=== PATIENT | male | born 1950 | race Caucasian/White ===

== ENCOUNTER 2017-11-20 13:43 | Observation (INO) | payer BC ==
[~2017-11-20] VITALS: Ht 167.6 cm; Wt 77.1 kg
[2017-11-20] MEDS ORDERED: NITROGLYCERIN 0.4 MG SUBL SL ONE (14:00)
[2017-11-20] MEDS ORDERED: ASPIRIN 81 MG CHEW TAB PO ONE (14:00)
[2017-11-20 14:01] LABS: BASOPHILS # (AUTO) 0.1 (0.0-0.1); BASOPHILS % 0.6 % (0.0-1.0); EOSINOPHILS # (AUTO) 0.4 (0.0-0.4); HEMATOCRIT 43.4 % (38.2-49.6); HEMOGLOBIN 14.8 g/dL (14.0-18.0); LYMPHOCYTES % 25.2 % (18.0-39.1); MEAN CORPUSCULAR HEMOGLOBIN 30.5 pg (28-32); MEAN CORPUSCULAR HGB CONC 34.1 g/dL (31-35); MEAN CORPUSCULAR VOLUME 89.3 fL (81-99); MONOCYTES # (AUTO) 0.8 (0.2-0.8); MONOCYTES % 10.4 % (4.4-11.3); NEUTROPHILS # (AUTO) 4.6 (2.1-6.9); NEUTROPHILS % 58.3 % (38.7-80.0); PLATELET COUNT 312 x10e3/uL (140-360); RED BLOOD COUNT 4.86 x10e6/uL (4.3-5.7); RED CELL DISTRIBUTION WIDTH 13.8 % (11.7-14.4)
[2017-11-20 14:12] LABS: INR 0.95; PROTHROMBIN TIME 11.9 seconds (11.9-14.5)
[2017-11-20 14:13] LABS: PARTIAL THROMBOPLASTIN TIME 32.5 seconds (23.8-35.5)
[2017-11-20 14:23] LABS: ALANINE AMINOTRANSFERASE 63 IU/L (0-55); ALBUMIN 4.2 g/dL (3.5-5.0); ALBUMIN/GLOBULIN RATIO 1.2 (0.8-2.0); ALKALINE PHOSPHATASE 241 IU/L (40-150); ANION GAP 12.4 mmol/L (8-16); BLOOD UREA NITROGEN 12 mg/dL (7-26); BUN/CREATININE RATIO 12 (6-25); CALCIUM 9.5 mg/dL (8.4-10.2); CARBON DIOXIDE 26 mmol/L (22-29); CHLORIDE 102 mmol/L (98-107); CREATINE KINASE 73 IU/L (30-200); CREATININE, SERUM 1.03 mg/dL (0.72-1.25); EST GLOMERULAR FILTRATION RATE > 60 ML/MIN (60-); GLUCOSE 87 mg/dL (74-118); POTASSIUM 4.4 mmol/L (3.5-5.1); SODIUM 136 mmol/L (136-145)
--- NOTE | 2017-11-20 14:32 | Diagnostic Imaging Report ---
EXAMINATION: CHEST SINGLE (PORTABLE) INDICATION: \S\ERMD ORDER \S\[id number] \S\1400 \S\Y COMPARISON: None FINDINGS: AP view TUBES and LINES: None. LUNGS: Lungs are well inflated. Lungs are clear. There is no evidence of pneumonia or pulmonary edema. PLEURA: No pleural effusion or pneumothorax. HEART AND MEDIASTINUM: Mildly tortuous aorta. The cardiomediastinal silhouette is otherwise unremarkable. BONES AND SOFT TISSUES: No acute osseous lesion. Soft tissues are unremarkable. UPPER ABDOMEN: No free air under the diaphragm. IMPRESSION: No acute thoracic abnormality. Signed by: DR. Eder Matos MD on 11/20/2017 2:29 PM
[2017-11-20 14:46] LABS: THYROID STIMULATING HORMONE 1.977 uIU/mL (0.350-4.940)
[2017-11-20] MEDS ORDERED: NITROGLYCERIN 2% OINT 1 GM PKT TOP ONE (15:00)
[2017-11-20] MEDS: NITROGLYCERIN 2% OINT 1 GM PKT TOP SCH (15:27)
[2017-11-20 15:28] LABS: BILIRUBIN,URINE NEGATIVE (NEGATIVE); CLARITY,URINE CLEAR (CLEAR); COLOR,URINE YELLOW (YELLOW); KETONES,URINE NEGATIVE (NEGATIVE); LEUKOCYTE ESTERASE ,URINE NEGATIVE (NEGATIVE); NITRITE,URINE NEGATIVE (NEGATIVE); PROTEIN,URINE DIPSTICK NEGATIVE (NEGATIVE); URINE UROBILINOGEN 0.2 mg/dL (0.2 - 1)
[2017-11-20 15:29] LABS: BACTERIA,URINE RARE /HPF; EPITHELIAL CELLS,URINE RARE /LPF; RBC,URINE 0-5 /HPF (0-5); WBC,URINE (MAN) 0-5 /HPF (0-5)
[2017-11-20] MEDS ORDERED: SODIUM CHLORIDE FLUSH 10 ML SYR INJ PRN (15:30)
[2017-11-20] MEDS ORDERED: MORPHINE SULFATE 2 MG/ML SYR IV PRN (15:30)
[2017-11-20] MEDS ORDERED: ONDANSETRON HCL INJ 2 MG/ML VIAL IV PRN (15:30)
[2017-11-20] MEDS: FAMOTIDINE 20 MG TAB PO SCH (15:30)
[2017-11-20] MEDS ORDERED: NITROGLYCERIN 0.4 MG SUBL SL PRN (15:30)
--- OUTSIDE RECORDS SUMMARY | 2017-11-20 15:54 | XMS REPORT ---
Author Author [facility] Address Unknown Phone Unavailable Care Team Providers Care Cylinder Steamer Name Role Phone KAROL MCLEAN Unavailable Unavailable Problems This patient has no known problems. Allergies, Adverse Reactions, Alerts This patient has no known allergies or adverse reactions. Medications This patient has no known medications. Results Test Description Test Time Test Comments Text Results Atomic Results Result Comments CHEST SINGLE (PORTABLE) [place] [id number] Patient Name: MATEO MAYES MR #: [id number] : 1950 Age/Sex: 67/M Req #: [id number] Adm Physician: Ordered by: RE HALL APPLICATION SPECIALIST Report #: [id number] Location: ER Room/Bed: Procedure: [id number] DX/CHEST SINGLE (PORTABLE) Exam Date: 11/20/17 Exam Time: 1400 REPORT STATUS: Signed EXAMINATION: CHEST SINGLE (PORTABLE) INDICATION: COMPARISON: None FINDINGS: AP view TUBES and LINES: None. LUNGS: Lungs are well inflated. Lungs are clear. There is no evidence of pneumonia or pulmonary edema. PLEURA: No pleural effusion or pneumothorax. HEART AND MEDIASTINUM: Mildly tortuous aorta. The cardiomediastinal silhouette is otherwise unremarkable. BONES AND SOFT TISSUES: No acute osseous lesion. Soft tissues are unremarkable. UPPER ABDOMEN: No free air under the diaphragm. IMPRESSION: No acute thoracic abnormality. Signed by: DR. Eder James MD on 2017 2:29 PM Dictated By: EDER JAMES MD 142 Transcribed By: JOANNE on 11/20/17 142 COPY TO: RE HALL NP
[2017-11-20 16:43] VITALS: BP 143/78
[2017-11-20 16:53] VITALS: BP 143/78
[2017-11-20 17:02] VITALS: BP 143/78
[2017-11-20] MEDS ORDERED: CLOPIDOGREL BISULFATE 75 MG TAB PO ONE (17:30)
[2017-11-20] MEDS ORDERED: ENOXAPARIN INJ 80 MG/0.8 ML SYR SC ONE (17:30)
[2017-11-20 19:21] LABS: CREATINE KINASE 55 IU/L (30-200)
[2017-11-20 20:00] VITALS: BP 124/67
[2017-11-20 22:00] VITALS: BP 124/67
[2017-11-21] VITALS (8 sets, daily range): BP systolic 113–156; BP diastolic 61–86
[2017-11-21 01:20] LABS: CREATINE KINASE MB 1.1 ng/mL (0-5.0)
[2017-11-21] MEDS: FAMOTIDINE 20 MG TAB PO SCH ×2 (04:00→16:24)
[2017-11-21] MEDS: NITROGLYCERIN 2% OINT 1 GM PKT TOP SCH ×2 (05:55)
[2017-11-21 06:36] LABS: BASOPHILS # (AUTO) 0.1 (0.0-0.1); BASOPHILS % 0.8 % (0.0-1.0); EOSINOPHILS # (AUTO) 0.4 (0.0-0.4); EOSINOPHILS % 4.9 % (0.0-6.0); HEMATOCRIT 38.8 % (38.2-49.6); HEMOGLOBIN 13.5 g/dL (14.0-18.0); LYMPHOCYTES # (AUTO) 1.6 (1.0-3.2); LYMPHOCYTES % 21.3 % (18.0-39.1); MEAN CORPUSCULAR HGB CONC 34.8 g/dL (31-35); MEAN CORPUSCULAR VOLUME 89.2 fL (81-99); MONOCYTES # (AUTO) 0.8 (0.2-0.8); MONOCYTES % 10.8 % (4.4-11.3); NEUTROPHILS # (AUTO) 4.8 (2.1-6.9); NEUTROPHILS % 61.8 % (38.7-80.0); PLATELET COUNT 274 x10e3/uL (140-360); RED BLOOD COUNT 4.35 x10e6/uL (4.3-5.7); RED CELL DISTRIBUTION WIDTH 13.9 % (11.7-14.4)
[2017-11-21 07:02] LABS: ALANINE AMINOTRANSFERASE 46 IU/L (0-55); ALBUMIN 3.6 g/dL (3.5-5.0); ALBUMIN/GLOBULIN RATIO 1.4 (0.8-2.0); ALKALINE PHOSPHATASE 191 IU/L (40-150); ANION GAP 13.1 mmol/L (8-16); BLOOD UREA NITROGEN 12 mg/dL (7-26); BUN/CREATININE RATIO 13 (6-25); CALCIUM 8.9 mg/dL (8.4-10.2); CARBON DIOXIDE 23 mmol/L (22-29); CHLORIDE 109 mmol/L (98-107); CREATININE, SERUM 0.89 mg/dL (0.72-1.25); EST GLOMERULAR FILTRATION RATE > 60 ML/MIN (60-); GLUCOSE 82 mg/dL (74-118); POTASSIUM 4.1 mmol/L (3.5-5.1); SODIUM 141 mmol/L (136-145)
[2017-11-21 07:05] LABS: CREATINE KINASE 44 IU/L (30-200)
[2017-11-21 07:25] LABS: CHOL/HDL RATIO 3.9 (3.9-4.7)
[2017-11-21] MEDS: ASPIRIN 81 MG ENTERIC COATED PO SCH (08:19)
--- NOTE | 2017-11-21 11:11 | History and Physical ---
The patient comes in with chest pain. HISTORY OF PRESENT ILLNESS: This is Mr. Asher Sexton with a history of hypertension in the past was in his usual state of health until 2 weeks prior to admission. The patient started moving some furniture and doing things around the house. Had noticed some chest pain which was centrally located. No radiation, but yesterday the patient went to cheondoism and was sitting in the pew. Without any exertion, the patient had chest pain in the right neck area. The patient came in to the ER for further evaluation and admitted for the same. PAST MEDICAL HISTORY: History of hypertension as mentioned above. Also, history of vitamin D deficiency, history of smoking in the past, osteoarthritis. PAST SURGICAL HISTORY: History of bilateral knee replacement, history of herniorrhaphy, history of shoulder surgery repair. FAMILY HISTORY: Positive for father who in his 40s with myocardial infarction. REVIEW OF SYSTEMS: Positive for chest pain. No shortness of breath. No nausea, vomiting or diarrhea. No constipation. No rectal bleeding. No hematochezia. No hematemesis. No blurry vision. No diplopia. No headaches. PHYSICAL EXAMINATION GENERAL: The patient is alert and oriented times 3. VITAL SIGNS: Temperature is 98, pulse 50, respirations 16, pulse ox 96%. HEENT: Normocephalic and atraumatic. Pupils reactive to light and accommodation. CV: S1 and S2 normal. Regular rate and rhythm. ABDOMEN: Nontender and nondistended. Central scar present. EXTREMITIES: No clubbing. No cyanosis. No edema. Positive for bilateral scars on the knees. LABORATORY VALUES: Initial white count is 7.8, hemoglobin 14.8 and 43.4. Chemistry: ALT was 46, ALT 63, alkaline phosphatase 241. TSH 1.977. Troponins have been negative so far at 0.018, 0.001, and 0.001. EGFR was 60. Coags were normal. Urine was normal too. ASSESSMENT: Chest pain, more cardiac in nature since it was relieved by nitroglycerin. From the strong family history, the patient probably needs a cardiac cath versus stress test. Will continue to monitor the patient throughout the stay. Cardiac consult has been done. Fasting lipids will be done. Further recommendations per clinical course. The patient will be inpatient. Will continue care with Dr. Villarreal. Job#: [id number] KENYETTA
[2017-11-21] MEDS ORDERED: ACETAMINOPHEN 325 MG TAB PO PRN (11:15)
[2017-11-21] MEDS ORDERED: HYDROCODONE/APAP 5MG-325MG TAB PO PRN (11:15)
[2017-11-21] MEDS ORDERED: ZOLPIDEM TARTRATE 5 MG TAB PO PRN (11:15)
[2017-11-21] MEDS ORDERED: ENOXAPARIN INJ 80 MG/0.8 ML SYR SC ONE (11:25)
[2017-11-21] MEDS ORDERED: ONDANSETRON HCL 4 MG ORAL DISINTEGRATING TAB PO PRN (11:30)
[2017-11-21] MEDS: CLOPIDOGREL BISULFATE 75 MG TAB PO SCH (12:25)
--- NOTE | 2017-11-21 18:15 | Consultation ---
DATE OF CONSULTATION: November 21, 2017 CARDIAC CONSULTATION REASON FOR CONSULTATION: Unstable coronary syndrome. HISTORY: A 67-year-old gentleman relatively healthy, very active. For the last 2 weeks has had severe retrosternal chest pain, radiate to the back. He attributed that to increasing his physical activity. He tries to space himself and slow down. However yesterday had very prolonged chest pain, severe, and asked his to bring him to the emergency room. He came to the emergency room, his cardiac enzymes were all normal. Patient's workup showed mild elevation of LFTs and bilirubin but apparently had this for many years. Since admission he seems to be doing well after he received Plavix and Lovenox. He is pain free now. He had also a nitro patch. Patient's symptoms are of 2 weeks' duration, progressively worse and is becoming at rest. It is retrosternal, radiating to the back, to the jaw severe and this is why he came to the hospital because he felt something was going on. There is no orthopnea, no PND, no syncope or presyncope. REVIEW OF SYSTEMS CARDIAC: As per above. PULMONARY: No cough, no hemoptysis. GI: No hematemesis. No melena. No GERD symptoms. : History of kidney stone but no symptoms recently. No hematuria, no dysuria. MUSCULOSKELETAL: He does have pain in several joints but only take Tylenol for this pain ( No NSAID ). GENERAL: No fever, no chills. HEMATOLOGIC: No easy bruising or bleeding. OTHERS: Patient is Known with liver issues. He had biopsy. He had several tests and they were all negative. HOME MEDICATIONS: Just Tylenol, vitamin D and multivitamins and Glucosamine. ALLERGIES: MORPHINE CAUSING SOME VOMITING AND SWEATING. SOCIAL HISTORY: He is . Nonsmoker. Rarely drinks. 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 Right knee replacement in 2001. Left shoulder surgery. Right and left inguinal hernia surgery, umbilical hernia surgery, left ankle surgery, history of kidney stone, vitamin D deficiency. Patient known to have chronic elevation of transaminase, had liver biopsy, liver scan and no cause was found. FAMILY HISTORY: Father at the age of 42 with major myocardial infarction. Mother of complications of migraine treatment and pain management. No siblings. PHYSICAL EXAMINATION VITALS: Height of 5 feet 6 inches, weight of 170 pounds, blood pressure 110/70, heart rate of 70/min, respiratory rate of 18. HEENT: Pupils are equal and reactive. NECK: No elevation of jugular venous pulsation. CHEST: Clear to auscultation and percussion. HEART: PMI fifth intercostal space on first and second heart sounds. ABDOMEN: Soft with good bowel sounds. No organomegaly, no abdominal bruits. EXTREMITIES: No cyanosis, no clubbing, no edema. Good distal pulses. Scars of previous surgeries are noted. NEUROLOGIC: Awake, alert, oriented. None focal. LAB DATA: Electrolytes showed sodium 143, potassium of 4.1, BUN 12, creatinine 0.89. White blood cell count of 7.7, hemoglobin 13.5, hematocrit 39%, platelet count . ALT and AST mildly elevated at 46, bilirubin of 1.5. Triglycerides of 148, cholesterol 183, HDL of 47, LDL of 106, TSH 1.98. EKG showing no acute changes. IMPRESSION: 1. Acute coronary syndrome. Patient presents with acute unstable angina. 2. Family history of coronary artery disease. 3. Hyperlipidemia. 4. Chronic elevation of transaminase and bilirubin, possible cause ? Jemal Nicholas, possible other cause. 5. Family history of coronary artery disease at young age. PLAN: Aspirin, Plavix, Lovenox, serial cardiac enzymes, echocardiogram. Options of workup were discussed and explained to the patient. Patient is very active and very acute and since his symptoms are very typical, and he does not like to come to the hospital, all this points to significant severe coronary artery disease. After discussion we elect to proceed with cardiac catheterization with possible intervention. Procedure risks, benefits, alternatives are discussed and explained. Questions are answered. This is a lengthy visit for more than 1 hour with the patient and his answering and explaining their questions. Job#: [id number] PACHECO SINGLETARY
[2017-11-22] VITALS (7 sets, daily range): BP systolic 142–169; BP diastolic 72–97
[2017-11-22] MEDS: FAMOTIDINE 20 MG TAB PO SCH ×2 (03:30→15:50)
[2017-11-22] MEDS ORDERED: SODIUM CHLORIDE 0.9% 1000ML 1,000 ML IV SCH (05:00)
[2017-11-22 06:55] LABS: BASOPHILS # (AUTO) 0.1 (0.0-0.1); BASOPHILS % 0.8 % (0.0-1.0); EOSINOPHILS # (AUTO) 0.4 (0.0-0.4); EOSINOPHILS % 5.7 % (0.0-6.0); HEMATOCRIT 42.9 % (38.2-49.6); HEMOGLOBIN 14.6 g/dL (14.0-18.0); LYMPHOCYTES # (AUTO) 1.8 (1.0-3.2); LYMPHOCYTES % 27.1 % (18.0-39.1); MEAN CORPUSCULAR HEMOGLOBIN 30.6 pg (28-32); MEAN CORPUSCULAR VOLUME 89.9 fL (81-99); MONOCYTES # (AUTO) 0.8 (0.2-0.8); MONOCYTES % 11.9 % (4.4-11.3); NEUTROPHILS # (AUTO) 3.5 (2.1-6.9); PLATELET COUNT 271 x10e3/uL (140-360); RED BLOOD COUNT 4.77 x10e6/uL (4.3-5.7); RED CELL DISTRIBUTION WIDTH 13.8 % (11.7-14.4)
[2017-11-22 07:23] LABS: ALANINE AMINOTRANSFERASE 39 IU/L (0-55); ALBUMIN 3.7 g/dL (3.5-5.0); ALBUMIN/GLOBULIN RATIO 1.2 (0.8-2.0); ALKALINE PHOSPHATASE 194 IU/L (40-150); ANION GAP 12.5 mmol/L (8-16); BLOOD UREA NITROGEN 16 mg/dL (7-26); BUN/CREATININE RATIO 16 (6-25); CALCIUM 9.1 mg/dL (8.4-10.2); CARBON DIOXIDE 25 mmol/L (22-29); CHLORIDE 108 mmol/L (98-107); CREATININE, SERUM 0.97 mg/dL (0.72-1.25); EST GLOMERULAR FILTRATION RATE > 60 ML/MIN (60-); GLUCOSE 89 mg/dL (74-118); POTASSIUM 4.5 mmol/L (3.5-5.1); SODIUM 141 mmol/L (136-145)
[2017-11-22] MEDS: ASPIRIN 81 MG ENTERIC COATED PO SCH (07:56)
[2017-11-22] MEDS: CLOPIDOGREL BISULFATE 75 MG TAB PO SCH (07:56)
[2017-11-22] MEDS ORDERED: CLONIDINE HCL 0.1 MG TAB PO ONE (08:15)
[2017-11-22] MEDS ORDERED: MIDAZOLAM HCL 2 MG/2 ML VIAL ONE (09:02)
[2017-11-22] MEDS ORDERED: HEPARIN SOD/SOD CHLORIDE 2,000 ML ONE (09:03)
[2017-11-22] MEDS ORDERED: SODIUM CHLORIDE 0.9% 1000ML 1,000 ML ONE (09:03)
[2017-11-22] MEDS ORDERED: LIDOCAINE HCL 2% LOCAL 20 ML VIAL ONE (09:03)
[2017-11-22] MEDS ORDERED: IOPAMIDOL 370 MG/ML 200 ML INFUS..BTL INJ ONE ×2 (09:03→10:06)
[2017-11-22] MEDS ORDERED: FENTANYL CITRATE/PF 100MCG/2 ML INJ ONE (09:03)
[2017-11-22] MEDS ORDERED: SODIUM CHLORIDE 0.9% 50ML 50 ML ONE (09:58)
[2017-11-22] MEDS ORDERED: BIVALIRUDIN 250 MG/VIAL IV ONE (09:58)
[2017-11-22] MEDS ORDERED: EPTIFIBATIDE 2 MG/1 ML 10ML VIAL ONE (10:01)
[2017-11-22] MEDS ORDERED: NITROGLYCERIN/D5W 200 MCG/ML 250 ML ONE (10:06)
[2017-11-22] MEDS ORDERED: CLOPIDOGREL BISULFATE 75 MG TAB ONE ×2 (10:34)
[2017-11-22] MEDS ORDERED: CEFAZOLIN SOD 2 GM/D5W 50ML 50 ML IV ONE (10:34)
[2017-11-22] MEDS: SODIUM CHLORIDE 0.9% 1000ML 1,000 ML IV SCH (11:06)
[2017-11-22] MEDS ORDERED: HYDROCODONE/APAP 5MG-325MG TAB PO PRN (11:15)
[2017-11-22] MEDS ORDERED: ONDANSETRON HCL INJ 2 MG/ML VIAL IV PRN (11:15)
--- NOTE | 2017-11-22 12:29 | Operative Report ---
DATE OF PROCEDURE: November 22, 2017 OPERATION PERFORMED: 1. Percutaneous coronary intervention and stenting of the left anterior descending coronary artery. 2. Left cardiac catheterization. INDICATION: Unstable coronary syndrome. TECHNICAL DETAILS: After the usual sterile preparation and draping procedure, intravenous Versed and fentanyl given for sedation, local Xylocaine for anesthesia. A 4-Romanian sheath established in place. Evelin left 4 and 3DRC catheter to engage coronary. Pigtail for hemodynamic measurement and left ventriculogram. A decision was made to proceed with intervention. For that reason, the existing 4-Romanian sheath exchanged to 6-Romanian sheath. Guiding catheter was 6-Romanian XB-3.5LAD. Stenting was done in 2.75 x 20 Synergy drug-eluted stent and 2.5 x 20 Synergy drug-eluted stent. The 1st stent up to 15 atmospheres, final diameter of 2.9, and the 2nd stent to 17 atmospheres, final diameter of 2.45. The area between the 2 stents was inflated up to 20 atmospheres with a 2.25 balloon of the stent. Repeated angiogram showed good results. Then attention was made to the right groan where it was successfully closed using Angio-Seal device. Patient given sedation with Versed, fentanyl, as well as anticoagulation with Angio-Max only bolus. There were no immediate complications and no blood loss. RESULTS: A. Coronary angiogram. 1. Left main is free of disease. 2. LAD several plaques and very tortuous artery, 30% ostially, 70% proximally, 90% at the origin of the 1st diagonal with 50% medium size diagonal disease. The artery distally is tortuous with several lesions at 40%. 3. Ramus free of disease. 4. Circumflex coronary artery dominant, circumflex giving 1st obtuse marginal, 2nd obtuse marginal, and then the PDA of the circumflex there are several lesions at 50%. 5. Right coronary artery is small nondominant. B. Hemodynamics: Aorta pressure 130/80. LV pressure 130/16. C. Left ventriculogram in the right anterior oblique view showed normal size ventricle, ejection fraction of 60% to 65%. PCI procedure: Guiding catheter 6-Romanian 3.5, stent 2.75 x 20 up to 15 atmospheres, 2.25 x 20 Synergy drug-eluted stent up to 17 atmospheres, and the area between the 2 stents at 20 atmospheres. Lesion prior to intervention at 90%, following intervention at 0%. COMPLICATIONS: None. BLOOD LOSS: None. Successful closure of right common femoral artery with Angio-Seal device. Job#: [id number] EV
[2017-11-22] MEDS: METOPROLOL TARTRATE 25 MG TAB PO SCH (15:50)
[2017-11-22] MEDS: CLONIDINE HCL 0.1 MG TAB PO PRN (17:54)
[2017-11-22] MEDS ORDERED: ATORVASTATIN 10 MG TAB PO SCH (21:00)
[2017-11-23] VITALS: BP 139/79
[2017-11-23] MEDS: FAMOTIDINE 20 MG TAB PO SCH (02:51)
[2017-11-23] MEDS: SODIUM CHLORIDE 0.9% 1000ML 1,000 ML IV SCH (02:51)
[2017-11-23 04:00] VITALS: BP 153/89
[2017-11-23] MEDS: CLONIDINE HCL 0.1 MG TAB PO PRN (06:22)
[2017-11-23 06:50] LABS: BASOPHILS % 0.4 % (0.0-1.0); EOSINOPHILS # (AUTO) 0.3 (0.0-0.4); EOSINOPHILS % 3.3 % (0.0-6.0); HEMOGLOBIN 13.3 g/dL (14.0-18.0); LYMPHOCYTES # (AUTO) 1.7 (1.0-3.2); MEAN CORPUSCULAR HEMOGLOBIN 31.1 pg (28-32); MEAN CORPUSCULAR HGB CONC 34.1 g/dL (31-35); MEAN CORPUSCULAR VOLUME 91.3 fL (81-99); MONOCYTES # (AUTO) 0.9 (0.2-0.8); MONOCYTES % 11.1 % (4.4-11.3); NEUTROPHILS % 63.6 % (38.7-80.0); PLATELET COUNT 240 x10e3/uL (140-360); RED BLOOD COUNT 4.27 x10e6/uL (4.3-5.7)
[2017-11-23 07:26] LABS: ANION GAP 10.7 mmol/L (8-16); BLOOD UREA NITROGEN 14 mg/dL (7-26); BUN/CREATININE RATIO 15 (6-25); CALCIUM 8.7 mg/dL (8.4-10.2); CARBON DIOXIDE 24 mmol/L (22-29); CHLORIDE 108 mmol/L (98-107); CREATININE, SERUM 0.92 mg/dL (0.72-1.25); EST GLOMERULAR FILTRATION RATE > 60 ML/MIN (60-); GLUCOSE 112 mg/dL (74-118); POTASSIUM 3.7 mmol/L (3.5-5.1); SODIUM 139 mmol/L (136-145)
[2017-11-23 07:47] VITALS: BP 159/93
[2017-11-23 08:00] VITALS: BP 159/93
[2017-11-23] MEDS: ASPIRIN 81 MG ENTERIC COATED PO SCH (08:31)
[2017-11-23] MEDS: CLOPIDOGREL BISULFATE 75 MG TAB PO SCH (08:32)
[2017-11-23] MEDS: METOPROLOL TARTRATE 25 MG TAB PO SCH (08:32)
[2017-11-23] MEDS ORDERED: LOSARTAN POTASSIUM 25 MG TAB PO SCH (09:15)
[2017-11-23] MEDS ORDERED: LOSARTAN POTASS25 MG PO (10:42)
[2017-11-23] MEDS ORDERED: PLAVIX75 MG PO (10:42)
[2017-11-23] MEDS ORDERED: ATORVASTATIN CA10 MG PO (10:43)
[2017-11-23] MEDS ORDERED: metoprolol PO (10:43)
[2017-11-23] MEDS ORDERED: ASPIR 8181 MG PO (10:44)
--- NOTE | 2017-12-18 01:01 | Discharge Summary ---
HOSPITAL COURSE: The patient came in with chest pain, acute coronary syndrome. Consult with Dr. Villarreal was done. With the chest pain, LDL was 106 and started on atorvastatin 10 mg. Plavix was started. The patient had PCI, showed 90% LAD lesion. Patient had a stent received and the patient had a PCI to LAD and started back on statin, aspirin, Plavix, and beta blockade. The patient was discharged home in a stable condition. FINAL DIAGNOSIS: Coronary artery disease, status post left heart catheterization with percutaneous coronary intervention to left anterior descending. Ejection fraction was 60% to 65%. Patient was asked to follow up with me and duct maker. Strict cardiac diet was given and patient will be followed up with Dr. Villarreal as an outpatient basis. Plavix, aspirin, statin, and beta blockade were started. For further information, look into the chart. For medicines on discharge, look into the medical reconciliation sheet. PROCEDURES DONE: Hearth catheterization. STEVE GOSS MD Job#: [id number]
== END 2017-11-23 11:45 | disposition home or self-care (01) ==
LOC: ER 13:43 → ERHOLD 15:50 → MED/SURG 16:15
PROVIDERS: ADMIT Family Medicine; ATTEND Family Medicine
DX: I20.0 Unstable angina (principal); Z82.49 Family history of ischemic heart disease and other diseases of the circulatory system; I10 Essential (primary) hypertension; E55.9 Vitamin D deficiency, unspecified; Z87.891 Personal history of nicotine dependence; Z88.5 Allergy status to narcotic agent; E78.5 Hyperlipidemia, unspecified; R74.0 Nonspecific elevation of levels of transaminase and lactic acid dehydrogenase [LDH]
CPT/HCPCS: 36415 ×2; 77002; 80048; 80053; 85025 ×2; 92928; 93005; 93458; 99284; C1766; C1769; C1874; G0378 ×4; J0583; J1327; J1650 ×2; J2001; J2250; J7030 ×2; Q9967; 36140; C9603

== ENCOUNTER → 2018-06-17 | Day surgery (SDC) | payer BC ==
[2018-06-13 17:21] LABS: BASOPHILS # (AUTO) 0.1 (0.0-0.1); BASOPHILS % 0.7 % (0.0-1.0); EOSINOPHILS # (AUTO) 0.2 (0.0-0.4); EOSINOPHILS % 3.3 % (0.0-6.0); HEMATOCRIT 41.8 % (38.2-49.6); HEMOGLOBIN 13.8 g/dL (14.0-18.0); LYMPHOCYTES # (AUTO) 1.5 (1.0-3.2); LYMPHOCYTES % 20.9 % (18.0-39.1); MEAN CORPUSCULAR HEMOGLOBIN 30.7 pg (28-32); MEAN CORPUSCULAR VOLUME 92.9 fL (81-99); MONOCYTES # (AUTO) 0.9 (0.2-0.8); MONOCYTES % 12.6 % (4.4-11.3); NEUTROPHILS # (AUTO) 4.6 (2.1-6.9); NEUTROPHILS % 61.6 % (38.7-80.0); PLATELET COUNT 320 x10e3/uL (140-360); RED CELL DISTRIBUTION WIDTH 14.2 % (11.7-14.4)
[~2018-06-17] MED LIST: ALLOPURINOL100 MG PO; ASPIR 8181 MG PO; ATORVASTATIN CA10 MG PO; FENTANYL CITRATE/PF 100MCG/2 ML INJ ONE; GLUCAGON FOR INJ 1 MG VIAL ONE; HYOSCYAMINE SULFATE 0.5 MG/ML INJ ONE; LOSARTAN POTASS25 MG PO; MIDAZOLAM HCL 2 MG/2 ML VIAL ONE; PANTOPRAZOLE SO40 MG PO; PLAVIX75 MG PO; PROPOFOL IV EMULSION 10 MG/ML 50 ML VIAL ONE; metoprolol PO
--- NOTE | 2018-06-17 18:24 | Operative Report ---
DATE OF PROCEDURE: June 17, 2018 REFERRING PHYSICIAN: Dr. Steve Goss. PROCEDURES PERFORMED 1. Esophagogastroduodenoscopy with biopsies and pyloric channel dilatation. 2. Colonoscopy with polypectomy. INDICATIONS FOR ESOPHAGOGASTRODUODENOSCOPY: Acid reflux. INDICATIONS FOR COLONOSCOPY: Colorectal cancer screening. MEDICATION: Patient was done under MAC. Please see anesthesiologist's note. PROCEDURE: With the patient in the left lateral decubitus position, flexible fiberoptic Olympus gastroscope was introduced into the esophagus under direct visualization without any difficulty. There was some patchy erythema noted in the distal esophagus. The scope was then advanced with ease into the stomach traversing a small hiatal hernia. The mucosa overlying the antrum and the body revealed some patchy erythema and low-grade to moderate edema and biopsies were obtained and sent to stain for H. pylori. There was a pyloric channel stricture and that was dilated to size 20 mm per TTS balloon dilators. It was then traversed with ease with a scope which was advanced all the way to the 2nd portion of the duodenum. The scope was then withdrawn slowly and mucosa overlying the proximal 2nd portion and the duodenal bulb appeared to be within normal limits. The scope was then withdrawn back into the stomach and retroflexed and the mucosa overlying the fundus appeared to be within normal limits. Previously described hiatal hernia was also noted in the retroflexed position. The scope was then straightened out and was subsequently withdrawn. Patient tolerated the procedure well. IMPRESSION 1. Distal esophagitis, mild. 2. Moderate-sized hiatal hernia. 3. Gastritis, biopsied. Biopsies sent to stain for Helicobacter pylori. 4. Pyloric channel stricture dilated to size 20 mm per TTS balloon dilators. PLAN: Follow up histology. Initiate Protonix 40 mg 1 p.o. q.a.m. a.c. Patient was then turned around and after adequate lubrication of the anal canal, a flexible fiberoptic Olympus colonoscope was inserted into the rectum with ease and advanced all the way to the cecum. Two polyps were snared from the cecum. Three polyps were hot biopsied and 2 polyps were snared from the ascending colon. One polyp was hot biopsied from the transverse colon. One polyp was hot biopsied from the descending colon. One polyp was snared and 1 polyp was hot biopsied from the sigmoid colon. One polyp was hot biopsied from the rectum. The scope was then retroflexed into the distal rectum and small internal hemorrhoids were noted, none of which was actively bleeding. The scope was then straightened out and was subsequently withdrawn. Patient tolerated the procedure well. Of note, the colon was excessively spastic and irritable. IMPRESSION 1. Cecal polyps x2, snared. 2. Ascending colon polyps x5, two snared and 3 hot biopsied. 3. Transverse colon polyp x1, hot biopsied. 4. Descending colon polyp, hot biopsied x1. 5. Sigmoid colon polyps x2, one snared and 1 hot biopsied. 6. Rectal polyp x1, hot biopsied. 7. Internal hemorrhoids, none actively bleeding. PLAN: Follow up histology. Initiate high-fiber, low-fat diet. Initiate high-fiber supplement. A total of 12 polyps were removed. Patient might benefit from a followup colonoscopy in 1 year. Job#: [id number] RTY cc:STEVE GOSS MD
--- OUTSIDE RECORDS SUMMARY | 2018-06-19 10:53 | XMS REPORT | Clinical Summary ---
Author Author [facility] Address Unknown Phone Unavailable Care Team Providers Care Hl7 Interface Developer Name Role Phone Goyo Felix PCP Allergies Comments Active Allergy Reactions Severity Noted Date sweating Morphine Nausea And 05/19/2018 Vomiting Medications End Date Status Medication Sig Dispensed Refills Start Date Active aspirin 81 MG chewable Take 81 mg by 0 tablet mouth daily. Active atorvastatin (LIPITOR) 10 Take 10 mg by 0 MG tablet mouth daily. Active clopidogrel (PLAVIX) 75 Take 75 mg by 0 mg tablet mouth daily. Active losartan-hydrochlorothiaz Take 1 tablet 0 cecile (HYZAAR) 100-12.5 mg by mouth per tablet daily. Active metoprolol (LOPRESSOR) 25 Take 12.5 mg 0 MG tablet by mouth 2 (two) times daily . Active pantoprazole (PROTONIX) Take 1 tablet 30 tablet 0 40 MG tablet (40 mg total) 8 by mouth daily. Active Problems Problem Noted Date Acute chest pain 05/19/2018 Encounters Care Team Description Date Type Specialty Victor Hugo Pearce MD L CATH & CORONARY ANGIOS 05/22/2018 Surgery [facility] [place], MD Aixa Lester Mahsa Abolfathian, MD Acute chest pain (Primary Dx); SOB (shortness of breath) 05/19/2018 Hospital Cardiology - Encounter 05/23/2018 05/19/2018 Orders Only General Internal Medicine 05/19/2018 Travel after 06/18/2017 Family History Medical History Relation Name Comments Heart disease Father Heart disease Paternal Grandfather Relation Name Status Comments Father Paternal Grandfather Social History Date Tobacco Use Types Packs/Day Years Used Never Smoker Smokeless Tobacco: Never Used Alcohol Use Drinks/Week oz/Week Comments No Alcohol Habits Answer Date Recorded How often do you have a drink containing alcohol? Never 05/19/2018 How many drinks containing alcohol do you have on Not asked a typical day when you are drinking? How often do you have six or more drinks on one Not asked occasion? Sex Assigned at Date Recorded Not on file Industry Job Start Date Occupation Not on file Not on file Not on file Travel End Travel History Travel Start No recent travel history available. Last Filed Vital Signs Time Taken Vital Sign Reading 05/23/2018 3:20 PM FLOOR ATTENDANT Blood Pressure 114/68 05/23/2018 3:20 PM FLOOR ATTENDANT Pulse 75 05/23/2018 3:20 PM FLOOR ATTENDANT Temperature 37 C (98.6 F) 05/23/2018 3:20 PM FLOOR ATTENDANT Respiratory Rate 18 05/23/2018 3:20 PM FLOOR ATTENDANT Oxygen Saturation 97% - Inhaled Oxygen - Concentration 05/22/2018 7:20 AM FLOOR ATTENDANT Weight 74.7 kg (164 lb 9.6 oz) 05/19/2018 11:35 AM FLOOR ATTENDANT Height 167.6 cm (5' 6") 05/22/2018 7:20 AM FLOOR ATTENDANT Body Mass Index 26.57 Plan of Treatment Not on file Implants Device Identifier Shelf Expiration Date Model / Serial / Lot Implanted Type Area Manufactur er [id number] 02/24/2019 [id number] / / [id number] Device Clsr Angio-Seal Vip 6fr Cardiovasc [facility] [id number] - [id number] ular MED:CARDIA Implanted: Qty: 1 on 05/22/2018 by Victor Hugo Franco MD Procedures Comments Procedure Name Priority Date/Time Associated Diagnosis RHYTHM STRIP - SCAN 05/24/2018 11:21 AM FLOOR ATTENDANT CARDIAC CATH REPORT - 05/24/2018 SCAN 11:21 AM FLOOR ATTENDANT FL ESOPHAGUS PHARNYX Routine 05/23/2018 AND/OR CERVICAL 9:50 AM FLOOR ATTENDANT CBC W/PLT COUNT & AUTO Routine 05/23/2018 DIFFERENTIAL 4:17 AM FLOOR ATTENDANT CBC W/PLT COUNT & AUTO Routine 05/23/2018 DIFFERENTIAL 4:17 AM FLOOR ATTENDANT MAGNESIUM Routine 05/23/2018 4:17 AM FLOOR ATTENDANT BASIC METABOLIC PANEL (7) Routine 05/23/2018 4:17 AM FLOOR ATTENDANT POCT-ACT Routine 05/22/2018 5:11 PM FLOOR ATTENDANT L CATH & CORONARY ANGIOS 05/22/2018 Chest pain due to 3:38 PM FLOOR ATTENDANT coronary artery disease CBC W/PLT COUNT & AUTO Routine 05/22/2018 DIFFERENTIAL 4:20 AM FLOOR ATTENDANT CBC W/PLT COUNT & AUTO Routine 05/22/2018 DIFFERENTIAL 4:20 AM FLOOR ATTENDANT MAGNESIUM Routine 05/22/2018 4:20 AM FLOOR ATTENDANT BASIC METABOLIC PANEL (7) Routine 05/22/2018 4:20 AM FLOOR ATTENDANT CBC W/PLT COUNT & AUTO Routine 05/21/2018 DIFFERENTIAL 4:35 AM FLOOR ATTENDANT TROPONIN I Routine 05/21/2018 4:35 AM FLOOR ATTENDANT CBC W/PLT COUNT & AUTO Routine 05/21/2018 DIFFERENTIAL 4:35 AM FLOOR ATTENDANT MAGNESIUM Routine 05/21/2018 4:35 AM FLOOR ATTENDANT BASIC METABOLIC PANEL (7) Routine 05/21/2018 4:35 AM FLOOR ATTENDANT ECG 12-LEAD Routine 05/21/2018 1:28 AM FLOOR ATTENDANT ECHOCARDIOGRAM REPORT - 05/20/2018 SCAN 6:50 PM FLOOR ATTENDANT 2D ECHO W/ DOPPLER Pending 05/20/2018 (CW/PW/COLOR) Discharge 1:32 PM FLOOR ATTENDANT CBC W/PLT COUNT & AUTO Routine 05/20/2018 DIFFERENTIAL 3:46 AM FLOOR ATTENDANT CBC W/PLT COUNT & AUTO Routine 05/20/2018 DIFFERENTIAL 3:46 AM FLOOR ATTENDANT MAGNESIUM Routine 05/20/2018 3:46 AM FLOOR ATTENDANT BASIC METABOLIC PANEL (7) Routine 05/20/2018 3:46 AM FLOOR ATTENDANT TROPONIN I Routine 05/19/2018 11:48 PM FLOOR ATTENDANT CREATINE KINASE (CK) Routine 05/19/2018 5:02 PM FLOOR ATTENDANT TROPONIN I Routine 05/19/2018 5:02 PM FLOOR ATTENDANT XR CHEST PA OR AP 1 VIEW STAT 05/19/2018 IN DEPT. 12:21 PM FLOOR ATTENDANT CBC W/PLT COUNT & AUTO STAT 05/19/2018 DIFFERENTIAL 12:08 PM FLOOR ATTENDANT CREATINE KINASE (CK) STAT 05/19/2018 12:08 PM FLOOR ATTENDANT TROPONIN I STAT 05/19/2018 12:08 PM FLOOR ATTENDANT PT/APTT STAT 05/19/2018 12:08 PM FLOOR ATTENDANT CBC W/PLT COUNT & AUTO STAT 05/19/2018 DIFFERENTIAL 12:08 PM FLOOR ATTENDANT B-TYPE NATRIURETIC FACTOR STAT 05/19/2018 (BNP) 12:08 PM FLOOR ATTENDANT BASIC METABOLIC PANEL (7) STAT 05/19/2018 12:08 PM FLOOR ATTENDANT ED ECG INTERPRETATION Routine 05/19/2018 11:58 AM FLOOR ATTENDANT ECG 12-LEAD Routine 05/19/2018 11:27 AM FLOOR ATTENDANT ECG 12-LEAD Routine 05/19/2018 11:27 AM FLOOR ATTENDANT Procedure Note - Interface, External Ris In - 05/19/2018 11:41 AM FLOOR ATTENDANT Ventricula r Rate 69 BPM Atrial Rate 69 BPM P-R Interval 182 ms QRS Duration 88 ms Q-T Interval 394 ms QTC Calculatio n(Bazett) 422 ms P [place] 59 degrees R [place] 61 degrees T [place] 13 degrees Normal sinus rhythm Normal ECG No previous ECGs available after 06/18/2017 Results * RHYTHM STRIP - SCAN (05/24/2018 11:21 AM FLOOR ATTENDANT) Narrative Performed At * CARDIAC CATH REPORT - SCAN (05/24/2018 11:21 AM FLOOR ATTENDANT) Narrative Performed At * FL esophagus (05/23/2018 9:50 AM FLOOR ATTENDANT) Narrative Performed At FINAL REPORT GE RIS INDICATION: 67-year-old male with chest pain for five days. COMPARISON: Chest radiograph May 19, 2018 TECHNIQUE: Fluoroscopic esophagram. Fluoroscopy time 0.6 minutes. Fluoroscopic exposures 0. Fluoroscopic scores 11. FINDINGS: In the upright position the patient was administered effervescent crystals and thick barium. No esophageal mucosal abnormality was demonstrated. A few tertiary contractions were noted without spasm. The patient was then positioned prone oblique and administered thin barium by mouth. Distal esophagus distended normally. The patient was turned supine and there was spontaneous reflux from the stomach to the mid esophagus. IMPRESSION: Moderate gastroesophageal reflux. Signed: Adolfo Page MD Report Verified Date/Time:05/23/2018 11:03:43 Reading Location: [address] Ortho Consult Reading Room Procedure Note Interface, External Ris In - 05/23/2018 11:05 AM FLOOR ATTENDANT FINAL REPORT INDICATION: 67-year-old male with chest pain for five days. COMPARISON: Chest radiograph May 19, 2018 TECHNIQUE: Fluoroscopic esophagram. Fluoroscopy time 0.6 minutes. Fluoroscopic exposures 0. Fluoroscopic scores 11. FINDINGS: In the upright position the patient was administered effervescent crystals and thick barium. No esophageal mucosal abnormality was demonstrated. A few tertiary contractions were noted without spasm. The patient was then positioned prone oblique and administered thin barium by mouth. Distal esophagus distended normally. The patient was turned supine and there was spontaneous reflux from the stomach to the mid esophagus. IMPRESSION: Moderate gastroesophageal reflux. Signed: Adolfo Page MD Report Verified Date/Time: 05/23/2018 11:03:43 Reading Location: [facility] [id number] Ortho Consult Reading Room Performing Organization Address City/State/Zipcode Phone Number [facility] * CBC with platelet count + automated diff (05/23/2018 4:17 AM FLOOR ATTENDANT) Only the most recent of 5 results within the time period is included. WBC 9.9 3.5 - 10.5 K/L [facility] RBC 4.83 4.63 - 6.08 M/L [facility] Hemoglobin 15.0 13.7 - 17.5 GM/DL [facility] Hematocrit 45.1 40.1 - 51.0 % [facility] MCV 93.4 (H) 79.0 - 92.2 fL [facility] MCH 31.1 25.7 - 32.2 pg [facility] MCHC 33.3 32.3 - 36.5 GM/DL [facility] RDW 15.0 (H) 11.6 - 14.4 % [facility] Platelets 281 150 - 450 K/CU MM [facility] MPV 10.5 9.4 - 12.4 fL [facility] nRBC 0 0 - 0 /100 WBC [facility] % Neutros 68 % [facility] % Lymphs 15 % [facility] % Monos 12 % [facility] % Eos 3 % [facility] % Baso 1 % [facility] # Neutros 6.78 (H) 1.78 - 5.38 K/L [facility] # Lymphs 1.47 1.32 - 3.57 K/L [facility] # Monos 1.19 (H) 0.30 - 0.82 K/L [facility] # Eos 0.25 0.04 - 0.54 K/L [facility] # Baso 0.05 0.01 - 0.08 K/L [facility] Immature 2 (H) 0 - 1 % [facility] Granulocytes-Relative [facility] Specimen Blood - Arm, Left Performing Organization Address City/State/Zipcode Phone [place] [address] [facility] * Magnesium (05/23/2018 4:17 AM FLOOR ATTENDANT) Only the most recent of 4 results within the time period is included. Magnesium 2.3 1.6 - 2.6 mg/dL [facility] Specimen Blood - Arm, Left Performing Organization Address City/[facility]/[place] [address] [phone] [place] [address] * Basic Metabolic Panel (05/23/2018 4:17 AM FLOOR ATTENDANT) Only the most recent of 5 results within the time period is included. Sodium 138 136 - 145 meq/L [facility] Potassium 4.4 3.5 - 5.1 meq/L [facility] Chloride 108 (H) 98 - 107 meq/L [facility] CO2 25 22 - 29 meq/L [facility] BUN 26 (H) 7 - 21 mg/dL [facility] Creatinine 1.01 0.57 - 1.25 mg/dL [facility] Glucose 118 (H) 70 - 105 mg/dL [facility] Calcium 8.9 8.4 - 10.2 mg/dL [facility] EGFR 74Comment: ESTIMATED GFR IS mL/min/1.73 sq m [facility] NOT ACCURATE CREATININE [facility] CLEARANCE IN PREDICTING GLOMERULAR FILTRATION RATE. ESTIMATED GFR IS NOT APPLICABLE FOR DIALYSIS PATIENTS. Specimen Blood - Arm, Left Performing Organization Address City/[facility]/[place] [address] [facility] * POC ACTIVATED CLOTTING TIME (05/22/2018 5:11 PM FLOOR ATTENDANT) Activated Clotting Time 301Comment: TESTED AT [facility] sec [address] Specimen Blood Performing Organization Address City/State/Zipcode Phone Number [facility] [address] [place] [address] [facility] * Troponin I (05/21/2018 4:35 AM FLOOR ATTENDANT) Only the most recent of 4 results within the time period is included. Troponin I <0.01 0.00 - 0.03 ng/mL [facility] Specimen Blood Performing Organization Address City/[facility] Phone Number [facility] [address] [place] [address] [facility] * ECG 12 lead (05/21/2018 1:28 AM FLOOR ATTENDANT) Only the most recent of 2 results within the time period is included. Narrative Performed At Ventricular Rate 87 BPM GE MUSE Atrial Rate 87 BPM P-R Interval 172 ms QRS Duration 90 ms Q-T Interval 386 ms QTC Calculation(Bazett) 464 ms P [place] 45 degrees R [place] 4 degrees T [place] 19 degrees Normal sinus rhythm Inferior infarct , age undetermined can't be r/o Abnormal ECG No previous ECGs available Confirmed by MD Goetz Roberto ([id number]) on 05/21/2018 10:52:15 AM Procedure Note Interface, External Ris In - 05/21/2018 10:52 AM FLOOR ATTENDANT Ventricular Rate 87 BPM Atrial Rate 87 BPM P-R Interval 172 ms QRS Duration 90 ms Q-T Interval 386 ms QTC Calculation(Bazett) 464 ms P [place] 45 degrees R [place] 4 degrees T [place] 19 degrees Normal sinus rhythm Inferior infarct , age undetermined can't be r/o Abnormal ECG No previous ECGs available Confirmed by MD Goetz Roberto ([id number]) on 05/21/2018 10:52:15 AM Performing Organization Address City/[facility] Phone Number [facility] * ECHOCARDIOGRAM REPORT - SCAN (05/20/2018 6:50 PM FLOOR ATTENDANT) Narrative Performed At * 2D Echo W/Doppler(CW/PW/Color) (05/20/2018 1:32 PM FLOOR ATTENDANT) Ejection Fraction [facility] Narrative Performed At Transthoracic Echocardiography Report (TTE) [facility] Demographics [facility] Patient NameMATEO MAYES Date of Study05/20/2018 JESSE Gender Male Visit [id number] Race [id number] Number Date of 1950 ReferringKEYANNA CRUZ Physician Age 67 year(s) JOSELITO Van Interpreting [facility] Needs to be Pre Physician Read Oliva Voss MD Procedure Type of Study TTE procedure:2DECHO W DOPPLER(CW/PW/COLOR) (Pending Discharge) Indications:Acute Chest Pain/ Suspected CAD. Clinical History CAD, HLD, HTN HGB 13.6 HCT 41.4 % Height: 66 inches Weight: 77.11 kg (170 lbs) BSA: 1.87 m^2 BMI: 27.44 kg/m^2 HR: 56 bpm BP: 153/82 mmHg Summary 1. Estimated LVEF by qualitative assessment is normal (60%) . All of the LV segments contract normally. 2. Grade 1 diastolic dysfunction (impaired relaxation and low-normal LA pressure). 3. The right ventricular chamber size and systolic function are within normal limits. 4. Estimated peak systolic PA pressure is 25-30 mmHg . Previous Study No prior studies available for comparison. Signature Findings Technical Quality: Technically adequate exam. Rhythm/BPRegular sinus rhythm during the exam. Left Ventricle Estimated LVEF by qualitative assessment is normal (60%) . All of the LV segments contract normally. Grade 1 diastolic dysfunction (impaired relaxation and low-normal LA pressure). Left AtriumLA size is normal (16-34 ml/m2) . Right VentricleThe right ventricular chamber size and systolic function are within normal limits. Right Atrium RA size is normal. Aortic Valve AoV cusp mobility is normal . Mitral Valve Normal MV structure. Tricuspid ValveTV structure is normal. A trace of tricuspid regurgitation. Estimated peak systolic PA pressure is 25-30 mmHg . Pulmonic Valve Normal PV structure and function. AortaAortic root size (SInus of Valsalva diameter) is normal . Proximal ascending aorta size is normal . PericardiumNo significant pericardial effusion is visualized. IVC/SVC/PA/PV/PleuralThe estimated RA pressure by IVC dynamics 5-10mmHg . Chambers/Structures Left Atrium LA Volume: 56 ml LA Vol. Index: 30 ml/m^2 Left Ventricle LVIDd: 4.31 cm LVEDV:83.63 ml LVIDs: 2.95 cm LVESV:33.52 ml LV Septum Diastolic: 1.4 cm LV PW Diastolic: 1.15 cm LV Length: 8.57 cm LVEDV Swan's:89.16 ml LV FS: 31.6 % LVESV Swan's:36.85 ml LVEF Swan's: 58.7 % LVEDVI: 48 ml/m^2 LVESVI: 20 ml/m^2 LVOT Diameter: 2.12 cm LVEF: 59.9 % Aorta Ascending Aorta: 3.43 cm Doppler/Quantitative Measurements Mitral Valve MV Peak E-Wave: 0.53 m/sMV Peak A-Wave: 0.73 m/s E/A Ratio: 0.73 Peak Gradient: 1.14 mmHg Deceleration Time: 356.5 msec MV Willard. Peak: Tissue Doppler E' Septal Velocity: 0.06 m/s E' Lateral Velocity: 0.06 m/s Aortic Valve Peak Velocity: 1.45 m/sMean Velocity: 1.03 m/s Peak Gradient: 8.39 mmHg Mean Gradient: 4.64 mmHg AV Area (continuity): 3.09 cm^2 AV VTI: 27.15 cm AV DVI: 0.88 LVOT Peak Velocity: 1.24 m/s Peak Gradient: 6.2 mmHg Mean Velocity: 0.99 m/s Mean Gradient: 4.18 mmHg LVOT Diameter: 2.12 cmLVOT VTI: 23.76 cm LVOT Area: 3.53 cm^2LVOT SV:83.83 ml LVOT CO: 4.69 l/min LVOT CI: 2.51 l/min/m^2 Procedure Note Interface, External Ris In - 05/20/2018 6:30 PM FLOOR ATTENDANT Transthoracic Echocardiography Report (TTE) Demographics Patient Name MATEO MAYES Date of Study 05/20/2018 JESSE Gender Male Visit Number [id number] Race Room Number 1047 Number Date of 1950 Referring KEYANNA CRUZ Physician Age 67 year(s) Credit Collection Specialist JOSELITO Moser Interpreting [facility] Needs to be Pre Physician Read Oliva Voss MD Procedure Type of Study TTE procedure:2DECHO W DOPPLER(CW/PW/COLOR) (Pending Discharge) Indications:Acute Chest Pain/ Suspected CAD. Clinical History CAD, HLD, HTN HGB 13.6 HCT 41.4 % Height: 66 inches Weight: 77.11 kg (170 lbs) BSA: 1.87 m^2 BMI: 27.44 kg/m^2 HR: 56 bpm BP: 153/82 mmHg Summary 1. Estimated LVEF by qualitative assessment is normal (60%) . All of the LV segments contract normally. 2. Grade 1 diastolic dysfunction (impaired relaxation and low-normal LA pressure). 3. The right ventricular chamber size and systolic function are within normal limits. 4. Estimated peak systolic PA pressure is 25-30 mmHg . Previous Study No prior studies available for comparison. Signature Findings Technical Quality: Technically adequate exam. Rhythm/BP Regular sinus rhythm during the exam. Left Ventricle Estimated LVEF by qualitative assessment is normal (60%) . All of the LV segments contract normally. Grade 1 diastolic dysfunction (impaired relaxation and low-normal LA pressure). Left Atrium LA size is normal (16-34 ml/m2) . Right Ventricle The right ventricular chamber size and systolic function are within normal limits. Right Atrium RA size is normal. Aortic Valve AoV cusp mobility is normal . Mitral Valve Normal MV structure. Tricuspid Valve TV structure is normal. A trace of tricuspid regurgitation. Estimated peak systolic PA pressure is 25-30 mmHg . Pulmonic Valve Normal PV structure and function. Aorta Aortic root size (SInus of Valsalva diameter) is normal . Proximal ascending aorta size is normal . Pericardium No significant pericardial effusion is visualized. IVC/SVC/PA/PV/Pleural The estimated RA pressure by IVC dynamics 5-10mmHg . Chambers/Structures Left Atrium LA Volume: 56 ml LA Vol. Index: 30 ml/m^2 Left Ventricle LVIDd: 4.31 cm LVEDV:83.63 ml LVIDs: 2.95 cm LVESV:33.52 ml LV Septum Diastolic: 1.4 cm LV PW Diastolic: 1.15 cm LV Length: 8.57 cm LVEDV Swan's:89.16 ml LV FS: 31.6 % LVESV Swan's:36.85 ml LVEF Swan's: 58.7 % LVEDVI: 48 ml/m^2 LVESVI: 20 ml/m^2 LVOT Diameter: 2.12 cm LVEF: 59.9 % Aorta Ascending Aorta: 3.43 cm Doppler/Quantitative Measurements Mitral Valve MV Peak E-Wave: 0.53 m/s MV Peak A-Wave: 0.73 m/s E/A Ratio: 0.73 Peak Gradient: 1.14 mmHg Deceleration Time: 356.5 msec MV Willard. Peak: Tissue Doppler E' Septal Velocity: 0.06 m/s E' Lateral Velocity: 0.06 m/s Aortic Valve Peak Velocity: 1.45 m/s Mean Velocity: 1.03 m/s Peak Gradient: 8.39 mmHg Mean Gradient: 4.64 mmHg AV Area (continuity): 3.09 cm^2 AV VTI: 27.15 cm AV DVI: 0.88 LVOT Peak Velocity: 1.24 m/s Peak Gradient: 6.2 mmHg Mean Velocity: 0.99 m/s Mean Gradient: 4.18 mmHg LVOT Diameter: 2.12 cm LVOT VTI: 23.76 cm LVOT Area: 3.53 cm^2 LVOT SV:83.83 ml LVOT CO: 4.69 l/min LVOT CI: 2.51 l/min/m^2 Performing Organization Address City/[facility] Phone Number [facility] * Creatine Kinase (CK) (05/19/2018 5:02 PM FLOOR ATTENDANT) Only the most recent of 2 results within the time period is included. Total CK 32 29 - 200 U/L [facility] Specimen Blood Performing Organization Address [facility] Phone Number [facility] [address] [place] [address] [facility] * XR chest PA or AP 1 view in dept (05/19/2018 12:21 PM FLOOR ATTENDANT) Narrative Performed At FINAL REPORT GE RIS TECHNIQUE: 2 views of the chest. COMPARISON: None FINDINGS: The cardiac silhouette is within normal limits.Thoracic aorta is ectatic. Left lung base densities otherwise lungs are clear.No acute skeletal abnormality. Soft tissues appear unremarkable. IMPRESSION: No acute cardiopulmonary disease. Signed: Hussain Lemus MD Report Verified Date/Time:05/19/2018 12:49:56 Reading Location: [facility] Radiology Reading Room Procedure Note Interface, External Ris In - 05/19/2018 12:52 PM FLOOR ATTENDANT FINAL REPORT TECHNIQUE: 2 views of the chest. COMPARISON: None FINDINGS: The cardiac silhouette is within normal limits. Thoracic aorta is ectatic. Left lung base densities otherwise lungs are clear. No acute skeletal abnormality. Soft tissues appear unremarkable. IMPRESSION: No acute cardiopulmonary disease. Signed: Hussain Lemus MD Report Verified Date/Time: 05/19/2018 12:49:56 Reading Location: [facility] Radiology Reading Room Performing Organization Address [facility] Phone Number GE RIS * PT/aPTT (05/19/2018 12:08 PM FLOOR ATTENDANT) Protime 12.7 11.7 - 14.7 seconds [facility] INR 1.0 <=5.9 [facility] PTT 26.7 22.5 - 36.0 seconds [facility] Specimen Blood - Line, Venous Narrative Performed At RECOMMENDED COUMADIN/WARFARIN INR THERAPY RANGES [facility] STANDARD DOSE: 2.0 - 3.0 Includes: PROPHYLAXIS for venous thrombosis, [facility] systemic embolization; TREATMENT for venous thrombosis and/or pulmonary embolus. HIGH RISK: Target INR is 2.5-3.5 for patients with mechanical heart valves. Performing Organization Address City/[facility] Phone Number [facility] [address] [place] [address] [phone] [place] [address] * B-type Natriuretic Factor (BNP) (05/19/2018 12:08 PM FLOOR ATTENDANT) BNP 21 0 - 100 pg/mL [facility] Specimen Blood - Line, Venous Performing Organization Address City/[facility] Phone Number [facility] [address] [place] [address] [phone] * ECG/EKG Interpretation (05/19/2018 11:58 AM FLOOR ATTENDANT) Narrative Performed At Eric Madrigal MD 05/19/2018 12:01 PM ECG/EKG Interpretation Date/Time: 05/19/2018 12:01 PM Performed by: Eric Madrigal MD Authorized by: Eric Madrigal MD The ECG was interpreted by ED physician. This ECG was not compared with previous ECG(s).The ECG is interpreted as sinus rhythm. Rate is normal rate. Heart rate is 69 BPM. Conduction: conduction normal. ST segments normal. T waves abnormal. [place] is normal. Clinical Impression: non-specific ECG after 06/18/2017 Insurance Payer Benefit Subscriber ID Type Phone Address Plan / Group [employer]UE [employer] BCBS PPO xxxxxxxxxxxx PPO [phone] [address] [place] [address] CHOICE Advance Directives For more information, please contact: [place] [phone] [place] [address] Date Inactivated Comments Code Status Date Activated Full Code 05/19/2018 1:57 PM This code status was determined by: Patient
== END | disposition home or self-care (01) ==
LOC: OR 13:51
PROVIDERS: ATTEND Internal Medicine Gastroenterology
DX: Z12.11 Encounter for screening for malignant neoplasm of colon (principal); D12.0 Benign neoplasm of cecum; D12.2 Benign neoplasm of ascending colon; D12.3 Benign neoplasm of transverse colon; D12.4 Benign neoplasm of descending colon; D12.5 Benign neoplasm of sigmoid colon; K62.1 Rectal polyp; K29.70 Gastritis, unspecified, without bleeding; K31.1 Adult hypertrophic pyloric stenosis; K21.9 Gastro-esophageal reflux disease without esophagitis; K20.8 Other esophagitis; K44.9 Diaphragmatic hernia without obstruction or gangrene; K64.8 Other hemorrhoids; I10 Essential (primary) hypertension; I25.10 Atherosclerotic heart disease of native coronary artery without angina pectoris; M10.9 Gout, unspecified; Z88.6 Allergy status to analgesic agent; Z01.810 Encounter for preprocedural cardiovascular examination; Z01.812 Encounter for preprocedural laboratory examination; Z79.02 Long term (current) use of antithrombotics/antiplatelets; Z79.82 Long term (current) use of aspirin; Z95.5 Presence of coronary angioplasty implant and graft
CPT/HCPCS: 36415; 43239; 43245; 45384; 45385; 85025; 93005; C1726; J1610; J1980; J2250; 43450; 44391

== ENCOUNTER 2018-06-28 09:40 | Inpatient (IN) | payer BC, MEDICARE ==
[2018-06-28] VITALS (12 sets, daily range): BP systolic 135–166; BP diastolic 78–99
[~2018-06-28] VITALS: Ht 167.6 cm; Wt 74.4 kg
[~2018-06-28 09:40] MED LIST changes: -FENTANYL CITRATE/PF 100MCG/2 ML INJ ONE; -GLUCAGON FOR INJ 1 MG VIAL ONE; -HYOSCYAMINE SULFATE 0.5 MG/ML INJ ONE; -MIDAZOLAM HCL 2 MG/2 ML VIAL ONE; -PROPOFOL IV EMULSION 10 MG/ML 50 ML VIAL ONE
--- OUTSIDE RECORDS SUMMARY | 2018-06-28 09:43 | XMS REPORT | Clinical Summary ---
Author Author FENG [facility] Address Unknown Phone Unavailable Care Team Providers Care Miner Name Role Phone Goyo Felix PCP Allergies [...] L CATH & CORONARY ANGIOS 05/22/2018 Surgery [facility], MD Aixa Lester Mahsa Abolfathian, MD Acute chest pain (Primary Dx); SOB (shortness of breath) 05/19/2018 Hospital Cardiology - Encounter 05/23/2018 05/19/2018 Orders Only General Internal Medicine 05/19/2018 Travel after 06/27/2017 Family History Medical History Relation Name Comments [...] Taken Vital Sign Reading 05/23/2018 3:20 PM DEVELOPMENT LEAD Blood Pressure 114/68 05/23/2018 3:20 PM DEVELOPMENT LEAD Pulse 75 05/23/2018 3:20 PM DEVELOPMENT LEAD Temperature 37 C (98.6 F) 05/23/2018 3:20 PM DEVELOPMENT LEAD Respiratory Rate 18 05/23/2018 3:20 PM DEVELOPMENT LEAD Oxygen Saturation 97% - Inhaled Oxygen - Concentration 05/22/2018 7:20 AM DEVELOPMENT LEAD Weight 74.7 kg (164 lb 9.6 oz) 05/19/2018 11:35 AM DEVELOPMENT LEAD Height 167.6 cm (5' 6") 05/22/2018 7:20 AM DEVELOPMENT LEAD Body Mass Index 26.57 Plan of Treatment Not on file Implants Device Identifier Shelf Expiration Date Model / Serial / Lot Implanted Type Area Manufactur er [id number] 02/24/2019 [id number] / / [id number] Device Clsr Angio-Seal Vip 6fr Cardi[employer]asc [id number] - [id number] ular MED:CARDIA Implanted: Qty: 1 on 05/22/2018 by Victor Hugo Franco MD Procedures Comments Procedure Name Priority Date/Time Associated Diagnosis RHYTHM STRIP - SCAN 05/24/2018 11:21 AM DEVELOPMENT LEAD CARDIAC CATH REPORT - 05/24/2018 SCAN 11:21 AM DEVELOPMENT LEAD FL ESOPHAGUS PHARNYX Routine 05/23/2018 AND/OR CERVICAL 9:50 AM DEVELOPMENT LEAD CBC W/PLT COUNT & AUTO Routine 05/23/2018 DIFFERENTIAL 4:17 AM DEVELOPMENT LEAD CBC W/PLT COUNT & AUTO Routine 05/23/2018 DIFFERENTIAL 4:17 AM DEVELOPMENT LEAD MAGNESIUM Routine 05/23/2018 4:17 AM DEVELOPMENT LEAD BASIC METABOLIC PANEL (7) Routine 05/23/2018 4:17 AM DEVELOPMENT LEAD POCT-ACT Routine 05/22/2018 5:11 PM DEVELOPMENT LEAD L CATH & CORONARY ANGIOS 05/22/2018 Chest pain due to 3:38 PM DEVELOPMENT LEAD coronary artery disease CBC W/PLT COUNT & AUTO Routine 05/22/2018 DIFFERENTIAL 4:20 AM DEVELOPMENT LEAD CBC W/PLT COUNT & AUTO Routine 05/22/2018 DIFFERENTIAL 4:20 AM DEVELOPMENT LEAD MAGNESIUM Routine 05/22/2018 4:20 AM DEVELOPMENT LEAD BASIC METABOLIC PANEL (7) Routine 05/22/2018 4:20 AM DEVELOPMENT LEAD CBC W/PLT COUNT & AUTO Routine 05/21/2018 DIFFERENTIAL 4:35 AM DEVELOPMENT LEAD TROPONIN I Routine 05/21/2018 4:35 AM DEVELOPMENT LEAD CBC W/PLT COUNT & AUTO Routine 05/21/2018 DIFFERENTIAL 4:35 AM DEVELOPMENT LEAD MAGNESIUM Routine 05/21/2018 4:35 AM DEVELOPMENT LEAD BASIC METABOLIC PANEL (7) Routine 05/21/2018 4:35 AM DEVELOPMENT LEAD ECG 12-LEAD Routine 05/21/2018 1:28 AM DEVELOPMENT LEAD ECHOCARDIOGRAM REPORT - 05/20/2018 SCAN 6:50 PM DEVELOPMENT LEAD 2D ECHO W/ DOPPLER Pending 05/20/2018 (CW/PW/COLOR) Discharge 1:32 PM DEVELOPMENT LEAD CBC W/PLT COUNT & AUTO Routine 05/20/2018 DIFFERENTIAL 3:46 AM DEVELOPMENT LEAD CBC W/PLT COUNT & AUTO Routine 05/20/2018 DIFFERENTIAL 3:46 AM DEVELOPMENT LEAD MAGNESIUM Routine 05/20/2018 3:46 AM DEVELOPMENT LEAD BASIC METABOLIC PANEL (7) Routine 05/20/2018 3:46 AM DEVELOPMENT LEAD TROPONIN I Routine 05/19/2018 11:48 PM DEVELOPMENT LEAD CREATINE KINASE (CK) Routine 05/19/2018 5:02 PM DEVELOPMENT LEAD TROPONIN I Routine 05/19/2018 5:02 PM DEVELOPMENT LEAD XR CHEST PA OR AP 1 VIEW STAT 05/19/2018 IN DEPT. 12:21 PM DEVELOPMENT LEAD CBC W/PLT COUNT & AUTO STAT 05/19/2018 DIFFERENTIAL 12:08 PM DEVELOPMENT LEAD CREATINE KINASE (CK) STAT 05/19/2018 12:08 PM DEVELOPMENT LEAD TROPONIN I STAT 05/19/2018 12:08 PM DEVELOPMENT LEAD PT/APTT STAT 05/19/2018 12:08 PM DEVELOPMENT LEAD CBC W/PLT COUNT & AUTO STAT 05/19/2018 DIFFERENTIAL 12:08 PM DEVELOPMENT LEAD B-TYPE NATRIURETIC FACTOR STAT 05/19/2018 (BNP) 12:08 PM DEVELOPMENT LEAD BASIC METABOLIC PANEL (7) STAT 05/19/2018 12:08 PM DEVELOPMENT LEAD ED ECG INTERPRETATION Routine 05/19/2018 11:58 AM DEVELOPMENT LEAD ECG 12-LEAD Routine 05/19/2018 11:27 AM DEVELOPMENT LEAD ECG 12-LEAD Routine 05/19/2018 11:27 AM DEVELOPMENT LEAD Procedure Note - Interface, External Ris In - 05/19/2018 11:41 AM DEVELOPMENT LEAD Ventricula r Rate 69 BPM Atrial Rate 69 BPM P-R Interval 182 ms QRS Duration 88 ms Q-T Interval 394 ms QTC Calculatio n(Bazett) 422 ms P [place] 59 degrees R [place] 61 degrees T [place] 13 degrees Normal sinus rhythm Normal ECG No previous ECGs available after 06/27/2017 Results * RHYTHM STRIP - SCAN (05/24/2018 11:21 AM DEVELOPMENT LEAD) Narrative Performed At * CARDIAC CATH REPORT - SCAN (05/24/2018 11:21 AM DEVELOPMENT LEAD) Narrative Performed At * FL esophagus (05/23/2018 9:50 AM DEVELOPMENT LEAD) Narrative Performed At FINAL REPORT GE RIS [...] MD Report Verified Date/Time:05/23/2018 11:03:43 Reading Location: [address] Ortho Consult Reading Room Procedure Note Interface, External Ris In - 05/23/2018 11:05 AM DEVELOPMENT LEAD FINAL REPORT INDICATION: 67-year-old male with chest [...] mid esophagus. IMPRESSION: Moderate gastroesophageal reflux. Signed: Adolof Page MD Report Verified Date/Time: 05/23/2018 11:03:43 Reading Location: [facility] [id number] Ortho Consult Reading Room Performing Organization Address City/State/Zipcode Phone Number [facility] * CBC with platelet count + automated diff (05/23/2018 4:17 AM DEVELOPMENT LEAD) Only the most recent of 5 results within the time period is included. WBC 9.9 3.5 - 10.5 K/L [facility] RBC 4.83 4.63 - 6.08 M/L [facility] Hemoglobin 15.0 13.7 - 17.5 GM/DL [facility] Hematocrit 45.1 40.1 - 51.0 % [facility] MCV 93.4 (H) 79.0 - 92.2 fL [facility] MCH 31.1 25.7 - 32.2 pg [facility] MCHC 33.3 32.3 - 36.5 GM/DL [facility] RDW 15.0 (H) 11.6 - 14.4 % [facility] Platelets 281 150 - 450 K/CU MM [facility] MPV 10.5 9.4 - 12.4 fL [facility] nRBC 0 0 - 0 /100 WBC [facility] % Neutros 68 % [facility] % Lymphs 15 % [facility] % Monos 12 % [facility] % Eos 3 % [facility] % Baso 1 % [facility] # Neutros 6.78 (H) 1.78 - 5.38 K/L [facility] # Lymphs 1.47 1.32 - 3.57 K/L [facility] # Monos 1.19 (H) 0.30 - 0.82 K/L [facility] # Eos 0.25 0.04 - 0.54 K/L [facility] # Baso 0.05 0.01 - 0.08 K/L [facility] Immature 2 (H) 0 - 1 % [facility] Granulocytes-Relative [facility] Specimen Blood - Arm, Left Performing Organization Address City/State/Zipcode Phone Number [place] [address] [facility] * Magnesium (05/23/2018 4:17 AM DEVELOPMENT LEAD) Only the most recent of 4 results within the time period is included. Magnesium 2.3 1.6 - 2.6 mg/dL [facility] Specimen Blood - Arm, Left Performing Organization Address City/[facility]/[place] [address] [phone] [place] [address] * Basic Metabolic Panel (05/23/2018 4:17 AM DEVELOPMENT LEAD) Only the most recent of 5 results within the time period is included. Sodium 138 136 - 145 meq/L [facility] Potassium 4.4 3.5 - 5.1 meq/L [facility] Chloride 108 (H) 98 - 107 meq/L [facility] CO2 25 22 - 29 meq/L [facility] BUN 26 (H) 7 - 21 mg/dL [facility] Creatinine 1.01 0.57 - 1.25 mg/dL [facility] Glucose 118 (H) 70 - 105 mg/dL [facility] Calcium 8.9 8.4 - 10.2 mg/dL [facility] EGFR 74Comment: ESTIMATED GFR IS mL/min/1.73 sq m [facility] NOT ACCURATE CREATININE [facility] CLEARANCE IN PREDICTING GLOMERULAR FILTRATION RATE. ESTIMATED GFR IS NOT APPLICABLE FOR DIALYSIS PATIENTS. Specimen Blood - Arm, Left Performing Organization Address City/[facility]/[place] [address] [facility] * POC ACTIVATED CLOTTING TIME (05/22/2018 5:11 PM DEVELOPMENT LEAD) Activated Clotting Time 301Comment: TESTED AT [facility] sec [address] Specimen Blood Performing Organization Address City/State/Zipcode Phone Number [facility] [address] [place] [address] [facility] * Troponin I (05/21/2018 4:35 AM DEVELOPMENT LEAD) Only the most recent of 4 results within the time period is included. Troponin I <0.01 0.00 - 0.03 ng/mL [facility] Specimen Blood Performing Organization Address City/[facility] Phone Number [facility] [address] [place] [address] [facility] * ECG 12 lead (05/21/2018 1:28 AM DEVELOPMENT LEAD) Only the most recent of 2 results within the time period is included. Narrative Performed At Ventricular Rate 87 BPM GE MUSE Atrial Rate 87 BPM P-R Interval 172 ms QRS Duration 90 ms Q-T Interval 386 ms QTC Calculation(Bazett) 464 ms P [place] 45 degrees R [place] 4 degrees T [place] 19 degrees Normal sinus rhythm Inferior infarct , age undetermined can't be r/o Abnormal ECG No previous ECGs available Confirmed by MD Goetz Roberto ([id number]) on 05/21/2018 10:52:15 AM Procedure Note Interface, External Ris In - 05/21/2018 10:52 AM DEVELOPMENT LEAD Ventricular Rate 87 BPM Atrial Rate 87 BPM P-R Interval 172 ms QRS Duration 90 ms Q-T Interval 386 ms QTC Calculation(Bazett) 464 ms P [place] 45 degrees R [place] 4 degrees T [place] 19 degrees Normal sinus rhythm Inferior infarct , age undetermined can't be r/o Abnormal ECG No previous ECGs available Confirmed by MD Goetz Roberto ([id number]) on 05/21/2018 10:52:15 AM Performing Organization Address City/[facility] Phone Number [employer] * ECHOCARDIOGRAM REPORT - SCAN (05/20/2018 6:50 PM DEVELOPMENT LEAD) Narrative Performed At * 2D Echo W/Doppler(CW/PW/Color) (05/20/2018 1:32 PM DEVELOPMENT LEAD) Ejection Fraction [facility] ECHO [facility] Narrative Performed At Transthoracic Echocardiography Report (TTE) [facility] Demographics [facility] Patient NameMATEO MAYES Date of Study05/20/2018 JESSE Gender Male Visit [id number] Race [id number] Number Date of 1950 ReferringKEYANNA CRUZ Physician Age 67 year(s) JOSELITO Van Interpreting [facility] Needs to be Pre Physician Read Oliva [...] External Ris In - 05/20/2018 6:30 PM DEVELOPMENT LEAD Transthoracic Echocardiography Report (TTE) Demographics Patient Name MATEO MAYES Date of Study 05/20/2018 JESSE Gender Male Visit Number [id number] Race Room Number 1047 Number Date of 1950 Referring KEYANNA CRUZ Physician Age 67 year(s) 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 Total CK 32 29 - 200 U/L [facility] Specimen Blood Performing Organization Address [facility] Facility[facility] Phone Number [facility] [address] [place] [address] [facility] * XR chest PA or AP 1 view in dept (05/19/2018 12:21 PM DEVELOPMENT LEAD) Narrative Performed At FINAL REPORT GE RIS TECHNIQUE: 2 views of the chest. COMPARISON: None FINDINGS: The cardiac silhouette is within normal limits.Thoracic aorta is ectatic. Left lung base densities otherwise lungs are clear.No acute skeletal abnormality. Soft tissues appear unremarkable. IMPRESSION: No acute cardiopulmonary disease. Signed: Hussain Lemus MD Report Verified Date/Time:05/19/2018 12:49:56 Reading Location: [facility] Radiology Reading Room Procedure Note Interface, External Ris In - 05/19/2018 12:52 PM DEVELOPMENT LEAD FINAL REPORT TECHNIQUE: 2 views of the chest. COMPARISON: None FINDINGS: The cardiac silhouette is within normal limits. Thoracic aorta is ectatic. Left lung base densities otherwise lungs are clear. No acute skeletal abnormality. Soft tissues appear unremarkable. IMPRESSION: No acute cardiopulmonary disease. Signed: Hussain Lemus MD Report Verified Date/Time: 05/19/2018 12:49:56 Reading Location: [facility] Radiology Reading Room Performing Organization Address [facility] Phone Number GE RIS * PT/aPTT (05/19/2018 12:08 PM DEVELOPMENT LEAD) Protime 12.7 11.7 - 14.7 seconds [facility] INR 1.0 <=5.9 [facility] PTT 26.7 22.5 - 36.0 seconds [facility] Specimen Blood - Line, Venous Narrative Performed At RECOMMENDED COUMADIN/WARFARIN INR THERAPY RANGES [facility] STANDARD DOSE: 2.0 - 3.0 Includes: PROPHYLAXIS for venous thrombosis, [facility] systemic embolization; TREATMENT for venous thrombosis and/or pulmonary embolus. HIGH RISK: Target INR is 2.5-3.5 for patients with mechanical heart valves. Performing Organization Address City/[facility] Facility[facility] Phone Number [facility] [address] [place] [address] [phone] [place] [address] * B-type Natriuretic Factor (BNP) (05/19/2018 12:08 PM DEVELOPMENT LEAD) BNP 21 0 - 100 pg/mL [facility] Specimen Blood - Line, Venous Performing Organization Address City/[facility] Facility[facility] Phone Number [place] [id number] [place] [address] [phone] * ECG/EKG Interpretation (05/19/2018 11:58 AM DEVELOPMENT LEAD) Narrative Performed At Eric Madrigal MD 05/19/2018 12:01 PM ECG/EKG Interpretation Date/Time: 05/19/2018 12:01 PM Performed by: Eric Mardigal MD Authorized by: Eric Madrigal MD The ECG was interpreted by ED physician. This ECG was not compared with previous ECG(s).The ECG is interpreted as sinus rhythm. Rate is normal rate. Heart rate is 69 BPM. Conduction: conduction normal. ST segments normal. T waves abnormal. [place] is normal. Clinical Impression: non-specific ECG after 06/27/2017 Insurance Payer Benefit Subscriber ID Type Phone Address Plan / Group BLUE CROSS/BLUE [employer]IELD BCBS PPO xxxxxxxxxxxx PPO [phone] [address] [place] [address] CHOICE Advance Directives For more information, please contact: [place] [id number] [place] [address] Date Inactivated Comments Code Status Date Activated Full Code 05/19/2018 1:57 PM This code status was determined by: Patient
[2018-06-28] MEDS ORDERED: SODIUM CHLORIDE 0.9% 1000ML 1,000 ML IV STA (10:04)
[2018-06-28] MEDS ORDERED: PANTOPRAZOLE 40 MG 10ML VIAL IV NR (10:04)
[2018-06-28 10:35] LABS: BASOPHILS % 0.2 % (0.0-1.0); HEMATOCRIT 31.4 % (38.2-49.6); HEMOGLOBIN 10.4 g/dL (14.0-18.0); LYMPHOCYTES # (AUTO) 1.8 (1.0-3.2); LYMPHOCYTES % 11.6 % (18.0-39.1); MEAN CORPUSCULAR HEMOGLOBIN 30.8 pg (28-32); MEAN CORPUSCULAR HGB CONC 33.1 g/dL (31-35); MEAN CORPUSCULAR VOLUME 92.9 fL (81-99); MONOCYTES # (AUTO) 0.7 (0.2-0.8); MONOCYTES % 4.4 % (4.4-11.3); NEUTROPHILS # (AUTO) 12.6 (2.1-6.9); NEUTROPHILS % 82.2 % (38.7-80.0); PLATELET COUNT 385 x10e3/uL (140-360); RED BLOOD COUNT 3.38 x10e6/uL (4.3-5.7); RED CELL DISTRIBUTION WIDTH 14.1 % (11.7-14.4)
[2018-06-28 10:44] LABS: INR 0.92; PARTIAL THROMBOPLASTIN TIME 23.6 seconds (23.8-35.5); PROTHROMBIN TIME 13.2 seconds (11.9-14.5)
[2018-06-28 10:54] LABS: ALANINE AMINOTRANSFERASE 112 IU/L (0-55); ALBUMIN 3.3 g/dL (3.5-5.0); ALBUMIN/GLOBULIN RATIO 1.1 (0.8-2.0); ALKALINE PHOSPHATASE 288 IU/L (40-150); BLOOD UREA NITROGEN 23 mg/dL (7-26); BUN/CREATININE RATIO 21 (6-25); CALCIUM 8.7 mg/dL (8.4-10.2); CARBON DIOXIDE 21 mmol/L (22-29); CHLORIDE 106 mmol/L (98-107); CREATINE KINASE 43 IU/L (30-200); CREATININE, SERUM 1.07 mg/dL (0.72-1.25); EST GLOMERULAR FILTRATION RATE > 60 ML/MIN (60-); GLUCOSE 160 mg/dL (74-118); MAGNESIUM 1.9 MG/DL (1.3-2.1); SODIUM 139 mmol/L (136-145)
[2018-06-28] MEDS ORDERED: SODIUM CHLORIDE 0.9% 250ML 250 ML IV ONE (11:15)
--- OUTSIDE RECORDS SUMMARY | 2018-06-28 11:56 | XMS REPORT | Clinical Summary ---
Author Author [facility]ENG [facility] Address Unknown Phone Unavailable Care Team Providers Care Land Commissioner Name Role Phone Goyo Felix PCP Allergies [...] L CATH & CORONARY ANGIOS 05/22/2018 Surgery [facility], MD Aixa Lester Mahsa Abolfathian, MD Acute [...] Taken Vital Sign Reading 05/23/2018 3:20 PM CATALOGUE MAKER Blood Pressure 114/68 05/23/2018 3:20 PM CATALOGUE MAKER Pulse 75 05/23/2018 3:20 PM CATALOGUE MAKER Temperature 37 C (98.6 F) 05/23/2018 3:20 PM CATALOGUE MAKER Respiratory Rate 18 05/23/2018 3:20 PM CATALOGUE MAKER Oxygen Saturation 97% - Inhaled Oxygen - Concentration 05/22/2018 7:20 AM CATALOGUE MAKER Weight 74.7 kg (164 lb 9.6 oz) 05/19/2018 11:35 AM CATALOGUE MAKER Height 167.6 cm (5' 6") 05/22/2018 7:20 AM CATALOGUE MAKER Body Mass Index 26.57 Plan of Treatment Not on file Implants Device Identifier Shelf Expiration Date Model / Serial / Lot Implanted Type Area Manufactur er [id number] 02/24/2019 [id number] / / [id number] Device Clsr Angio-Seal Vip 6fr Cardiovasc [id number] - [id number] ular MED:CARDIA Implanted: Qty: 1 on 05/22/2018 by Victor Hugo Franco MD Procedures Comments Procedure Name Priority Date/Time Associated Diagnosis RHYTHM STRIP - SCAN 05/24/2018 11:21 AM CATALOGUE MAKER CARDIAC CATH REPORT - 05/24/2018 SCAN 11:21 AM CATALOGUE MAKER FL ESOPHAGUS PHARNYX Routine 05/23/2018 AND/OR CERVICAL 9:50 AM CATALOGUE MAKER CBC W/PLT COUNT & AUTO Routine 05/23/2018 DIFFERENTIAL 4:17 AM CATALOGUE MAKER CBC W/PLT COUNT & AUTO Routine 05/23/2018 DIFFERENTIAL 4:17 AM CATALOGUE MAKER MAGNESIUM Routine 05/23/2018 4:17 AM CATALOGUE MAKER BASIC METABOLIC PANEL (7) Routine 05/23/2018 4:17 AM CATALOGUE MAKER POCT-ACT Routine 05/22/2018 5:11 PM CATALOGUE MAKER L CATH & CORONARY ANGIOS 05/22/2018 Chest pain due to 3:38 PM CATALOGUE MAKER coronary artery disease CBC W/PLT COUNT & AUTO Routine 05/22/2018 DIFFERENTIAL 4:20 AM CATALOGUE MAKER CBC W/PLT COUNT & AUTO Routine 05/22/2018 DIFFERENTIAL 4:20 AM CATALOGUE MAKER MAGNESIUM Routine 05/22/2018 4:20 AM CATALOGUE MAKER BASIC METABOLIC PANEL (7) Routine 05/22/2018 4:20 AM CATALOGUE MAKER CBC W/PLT COUNT & AUTO Routine 05/21/2018 DIFFERENTIAL 4:35 AM CATALOGUE MAKER TROPONIN I Routine 05/21/2018 4:35 AM CATALOGUE MAKER CBC W/PLT COUNT & AUTO Routine 05/21/2018 DIFFERENTIAL 4:35 AM CATALOGUE MAKER MAGNESIUM Routine 05/21/2018 4:35 AM CATALOGUE MAKER BASIC METABOLIC PANEL (7) Routine 05/21/2018 4:35 AM CATALOGUE MAKER ECG 12-LEAD Routine 05/21/2018 1:28 AM CATALOGUE MAKER ECHOCARDIOGRAM REPORT - 05/20/2018 SCAN 6:50 PM CATALOGUE MAKER 2D ECHO W/ DOPPLER Pending 05/20/2018 (CW/PW/COLOR) Discharge 1:32 PM CATALOGUE MAKER CBC W/PLT COUNT & AUTO Routine 05/20/2018 DIFFERENTIAL 3:46 AM CATALOGUE MAKER CBC W/PLT COUNT & AUTO Routine 05/20/2018 DIFFERENTIAL 3:46 AM CATALOGUE MAKER MAGNESIUM Routine 05/20/2018 3:46 AM CATALOGUE MAKER BASIC METABOLIC PANEL (7) Routine 05/20/2018 3:46 AM CATALOGUE MAKER TROPONIN I Routine 05/19/2018 11:48 PM CATALOGUE MAKER CREATINE KINASE (CK) Routine 05/19/2018 5:02 PM CATALOGUE MAKER TROPONIN I Routine 05/19/2018 5:02 PM CATALOGUE MAKER XR CHEST PA OR AP 1 VIEW STAT 05/19/2018 IN DEPT. 12:21 PM CATALOGUE MAKER CBC W/PLT COUNT & AUTO STAT 05/19/2018 DIFFERENTIAL 12:08 PM CATALOGUE MAKER CREATINE KINASE (CK) STAT 05/19/2018 12:08 PM CATALOGUE MAKER TROPONIN I STAT 05/19/2018 12:08 PM CATALOGUE MAKER PT/APTT STAT 05/19/2018 12:08 PM CATALOGUE MAKER CBC W/PLT COUNT & AUTO STAT 05/19/2018 DIFFERENTIAL 12:08 PM CATALOGUE MAKER B-TYPE NATRIURETIC FACTOR STAT 05/19/2018 (BNP) 12:08 PM CATALOGUE MAKER BASIC METABOLIC PANEL (7) STAT 05/19/2018 12:08 PM CATALOGUE MAKER ED ECG INTERPRETATION Routine 05/19/2018 11:58 AM CATALOGUE MAKER ECG 12-LEAD Routine 05/19/2018 11:27 AM CATALOGUE MAKER ECG 12-LEAD Routine 05/19/2018 11:27 AM CATALOGUE MAKER Procedure Note - Interface, External Ris In - 05/19/2018 11:41 AM CATALOGUE MAKER Ventricula r Rate 69 BPM Atrial Rate 69 BPM P-R Interval 182 ms QRS Duration 88 ms Q-T Interval 394 ms QTC Calculatio n(Bazett) 422 ms P Vallejo 59 degrees R Vallejo 61 degrees T Vallejo 13 degrees Normal sinus rhythm Normal ECG No previous ECGs available after 06/27/2017 Results * RHYTHM STRIP - SCAN (05/24/2018 11:21 AM CATALOGUE MAKER) Narrative Performed At * CARDIAC CATH REPORT - SCAN (05/24/2018 11:21 AM CATALOGUE MAKER) Narrative Performed At * FL esophagus (05/23/2018 9:50 AM CATALOGUE MAKER) Narrative Performed At FINAL REPORT GE RIS [...] MD Report Verified Date/Time:05/23/2018 11:03:43 Reading Location: [address] Ortho Consult Reading Room Procedure Note Interface, External Ris In - 05/23/2018 11:05 AM CATALOGUE MAKER FINAL REPORT INDICATION: 67-year-old male with chest [...] Report Verified Date/Time: 05/23/2018 11:03:43 Reading Location: [facility] [id number] Ortho Consult Reading Room Performing Organization Address City/State/Zipcode Phone Number [facility] * CBC with platelet count + automated diff (05/23/2018 4:17 AM CATALOGUE MAKER) Only the most recent of 5 results within the time period is included. WBC 9.9 3.5 - 10.5 K/L [facility] RBC 4.83 4.63 - 6.08 M/L [facility] Hemoglobin 15.0 13.7 - 17.5 GM/DL [facility] Hematocrit 45.1 40.1 - 51.0 % [facility] MCV 93.4 (H) 79.0 - 92.[address] [facility] MCH 31.1 25.7 - 32.[address] [facility] MCHC 33.3 32.3 - 36.5 GM/DL [facility] RDW 15.0 (H) 11.6 - 14.4 % [facility] Platelets 281 150 - 450 K/CU MM [facility] MPV 10.5 9.4 - 12.[address] [facility] nRBC 0 0 - 0 /[address] [facility] % Neutros 68 % [facility] % Lymphs 15 % [facility] % Monos 12 % [facility] % Eos 3 % [facility] % Baso 1 % [facility] # Neutros 6.78 (H) 1.78 - 5.38 K/L [facility] # Lymphs 1.47 1.32 - 3.57 K/L [facility] # Monos 1.19 (H) 0.30 - 0.82 K/L [facility] # Eos 0.25 0.04 - 0.54 K/L [facility] # Baso 0.05 0.01 - 0.08 K/L [facility] Immature 2 (H) 0 - 1 % [facility] Granulocytes-Relative [facility] Specimen Blood - Arm, Left Performing Organization Address City/State/Zipcode Phone Number [place] [address] [facility] * Magnesium (05/23/2018 4:17 AM CATALOGUE MAKER) Only the most recent of 4 results within the time period is included. Magnesium 2.3 1.6 - 2.6 mg/dL [facility] Specimen Blood - Arm, Left Performing Organization Address City/[facility]/[place] [address] [phone] [place] [address] * Basic Metabolic Panel (05/23/2018 4:17 AM CATALOGUE MAKER) Only the most recent of 5 results within the time period is included. Sodium 138 136 - 145 meq/L [facility] Potassium 4.4 3.5 - 5.1 meq/L [facility] Chloride 108 (H) 98 - 107 meq/L [facility] CO2 25 22 - 29 meq/L [facility] BUN 26 (H) 7 - 21 mg/dL [facility] Creatinine 1.01 0.57 - 1.25 mg/dL [facility] Glucose 118 (H) 70 - 105 mg/dL [facility] Calcium 8.9 8.4 - 10.2 mg/dL [facility] EGFR 74Comment: ESTIMATED GFR IS mL/min/1.73 sq m [facility] NOT ACCURATE CREATININE [facility] CLEARANCE IN PREDICTING GLOMERULAR FILTRATION RATE. ESTIMATED GFR IS NOT APPLICABLE FOR DIALYSIS PATIENTS. Specimen Blood - Arm, Left Performing Organization Address City/[facility]/[place] [address] [facility] * POC ACTIVATED CLOTTING TIME (05/22/2018 5:11 PM CATALOGUE MAKER) Activated Clotting Time 301Comment: TESTED AT [facility] sec [address] Specimen Blood Performing Organization Address City/State/Zipcode Phone Number [facility] [address] [place] [address] [facility] * Troponin I (05/21/2018 4:35 AM CATALOGUE MAKER) Only the most recent of 4 results within the time period is included. Troponin I <0.01 0.00 - 0.03 ng/mL [facility] Specimen Blood Performing Organization Address City/[facility] Phone Number [facility] [address] [place] [address] [facility] * ECG 12 lead (05/21/2018 1:28 AM CATALOGUE MAKER) Only the most recent of 2 results within the time period is included. Narrative Performed At Ventricular Rate 87 BPM GE MUSE Atrial Rate 87 BPM P-R Interval 172 ms QRS Duration 90 ms Q-T Interval 386 ms QTC Calculation(Bazett) 464 ms P Vallejo 45 degrees R Vallejo 4 degrees T Vallejo 19 degrees Normal sinus rhythm Inferior infarct , age undetermined can't be r/o Abnormal ECG No previous ECGs available Confirmed by MD Goetz Roberto ([id number]) on 05/21/2018 10:52:15 AM Procedure Note Interface, External Ris In - 05/21/2018 10:52 AM CATALOGUE MAKER Ventricular Rate 87 BPM Atrial Rate 87 BPM P-R Interval 172 ms QRS Duration 90 ms Q-T Interval 386 ms QTC Calculation(Bazett) 464 ms P Vallejo 45 degrees R Vallejo 4 degrees T Vallejo 19 degrees Normal sinus rhythm Inferior infarct , age undetermined can't be r/o Abnormal ECG No previous ECGs available Confirmed by MD Goetz Roberto ([id number]) on 05/21/2018 10:52:15 AM Performing Organization Address City/[facility] Phone Number [employer] * ECHOCARDIOGRAM REPORT - SCAN (05/20/2018 6:50 PM CATALOGUE MAKER) Narrative Performed At * 2D Echo W/Doppler(CW/PW/Color) (05/20/2018 1:32 PM CATALOGUE MAKER) Ejection Fraction [facility] Narrative Performed At Transthoracic Echocardiography Report (TTE) [facility] Demographics [facility] Patient NameMATEO MAYES Date of Study05/20/2018 JESSE Gender Male Visit [id number] Race [id number] Number Date of 1950 ReferringKEYANNA CRUZ Physician Age 67 year(s) JOSELITO Van Interpreting [facility] Needs to be Pre Physician [...] External Ris In - 05/20/2018 6:30 PM CATALOGUE MAKER Transthoracic Echocardiography Report (TTE) Demographics Patient Name MATEO MAYES Date of Study 05/20/2018 JESSE Gender Male Visit Number [id number] Race Room Number 1047 Number Date of 1950 Referring KEYANNA CRUZ Physician 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 Total CK 32 29 - 200 U/L [facility] Specimen Blood Performing Organization Address [facility] Phone Number [facility] [address] [place] [address] [facility] * XR chest PA or AP 1 view in dept (05/19/2018 12:21 PM CATALOGUE MAKER) Narrative Performed At FINAL REPORT GE RIS TECHNIQUE: 2 views of the chest. COMPARISON: None FINDINGS: The cardiac silhouette is within normal limits.Thoracic aorta is ectatic. Left lung base densities otherwise lungs are clear.No acute skeletal abnormality. Soft tissues appear unremarkable. IMPRESSION: No acute cardiopulmonary disease. Signed: Hussain Lemus MD Report Verified Date/Time:05/19/2018 12:49:56 Reading Location: [facility] Radiology Reading Room Procedure Note Interface, External Ris In - 05/19/2018 12:52 PM CATALOGUE MAKER FINAL REPORT TECHNIQUE: 2 views of the chest. COMPARISON: None FINDINGS: The cardiac silhouette is within normal limits. Thoracic aorta is ectatic. Left lung base densities otherwise lungs are clear. No acute skeletal abnormality. Soft tissues appear unremarkable. IMPRESSION: No acute cardiopulmonary disease. Signed: Hussain Lemus MD Report Verified Date/Time: 05/19/2018 12:49:56 Reading Location: [facility] Radiology Reading Room Performing Organization Address [facility] Phone Number GE RIS * PT/aPTT (05/19/2018 12:08 PM CATALOGUE MAKER) Protime 12.7 11.7 - 14.[address] [facility] INR 1.0 <=[address].9 [facility] PTT 26.7 22.5 - 36.[address] [facility] Specimen Blood - Line, Venous Narrative Performed At RECOMMENDED COUMADIN/WARFARIN INR THERAPY RANGES [facility] STANDARD DOSE: 2.0 - 3.0 Includes: PROPHYLAXIS for venous thrombosis, [facility] systemic embolization; TREATMENT for venous thrombosis and/or pulmonary embolus. HIGH RISK: Target INR is 2.5-3.5 for patients with mechanical heart valves. Performing Organization Address City/[facility] Phone Number [facility] [address] [place] [address] [phone] [place] [address] * B-type Natriuretic Factor (BNP) (05/19/2018 12:08 PM CATALOGUE MAKER) BNP 21 0 - 100 pg/mL [facility] Specimen Blood - Line, Venous Performing Organization Address City/[facility] Phone Number [place] [phone] [place] [address] [phone] * ECG/EKG Interpretation (05/19/2018 11:58 AM CATALOGUE MAKER) Narrative Performed At Eric Madrigal MD 05/19/2018 [...] normal. ST segments normal. T waves abnormal. Vallejo is normal. Clinical Impression: non-specific ECG after 06/27/2017 Insurance Payer Benefit Subscriber ID Type Phone Address Plan / Group BLUE CROSS/[employer] BCBS PPO xxxxxxxxxxxx PPO [phone] [address] [place] [address] CHOICE Advance Directives For more information, please contact: [place] [phone] [place] [address] Date Inactivated Comments Code Status Date Activated Full Code 05/19/2018 1:57 PM This code status was determined by: Patient
[2018-06-28] MEDS: SODIUM CHLORIDE 0.9% 1000ML 1,000 ML IV SCH ×2 (12:01→21:57)
--- NOTE | 2018-06-28 12:58 | Diagnostic Imaging Report ---
EXAMINATION: CHEST SINGLE (PORTABLE) COMPARISON: Chest radiograph 11/20/2017. FINDINGS: TUBES and LINES: None. LUNGS: Lungs are well inflated. Mild linear subsegmental atelectasis at the left lung base. There is no evidence of pneumonia or pulmonary edema. PLEURA: No pleural effusion or pneumothorax. HEART AND MEDIASTINUM: The cardiomediastinal silhouette is unremarkable. BONES AND SOFT TISSUES: No acute osseous lesion. Soft tissues are unremarkable. UPPER ABDOMEN: No free air under the diaphragm. IMPRESSION: No acute radiographic abnormality. Signed by: Dr. Lida Avendano MD on 06/28/2018 12:54 PM
[2018-06-28] MEDS ORDERED: SODIUM CHLORIDE 0.9% 250ML 250 ML ONE ×2 (14:17→19:04)
[2018-06-28 18:27] LABS: CREATINE KINASE 77 IU/L (30-200)
[2018-06-28 18:45] LABS: BASOPHILS % 0.2 % (0.0-1.0); EOSINOPHILS % 0.2 % (0.0-6.0); HEMOGLOBIN 7.8 g/dL (14.0-18.0); LYMPHOCYTES # (AUTO) 2.7 (1.0-3.2); LYMPHOCYTES % 20.4 % (18.0-39.1); MEAN CORPUSCULAR HEMOGLOBIN 31.1 pg (28-32); MEAN CORPUSCULAR HGB CONC 33.9 g/dL (31-35); MEAN CORPUSCULAR VOLUME 91.6 fL (81-99); MONOCYTES # (AUTO) 1.1 (0.2-0.8); MONOCYTES % 8.3 % (4.4-11.3); NEUTROPHILS # (AUTO) 9.1 (2.1-6.9); NEUTROPHILS % 69.4 % (38.7-80.0); PLATELET COUNT 323 x10e3/uL (140-360); RED BLOOD COUNT 2.51 x10e6/uL (4.3-5.7); RED CELL DISTRIBUTION WIDTH 14.3 % (11.7-14.4)
--- NOTE | 2018-06-28 19:30 | NUR ---
Patient had Transfusing 1 of 1 units PRBC's at this time. Will continue to monitor.
--- NOTE | 2018-06-28 19:52 | NUR ---
Report received from AM nurse Tony. Patient received resting on his bed. Dr. Gomes round the patient. MD ordered 2units PRBC's at his time.Patient denied pain and no SOB. No respiratory distress noted. Family in the bedside. Patient assisted to to go bathroom, patient tolerated well.Bed in lower position,locked. Call segundo within reach. Will continue to monitor.
[2018-06-28] MEDS ORDERED: ATORVASTATIN 10 MG TAB PO SCH (21:00)
--- NOTE | 2018-06-28 21:13 | History and Physical ---
A 67-year-old male comes in with severe rectal bleeding. HISTORY OF PRESENT ILLNESS: This is Mr. Sexton who recently had a colonoscopy 11 days ago and had polypectomy, 2 of them removed, was in usual state of health until yesterday. The patient restarted his Plavix and the patient noticed some rectal bleeding. The patient this morning when he woke up and went to work, the patient had about 2 coffee cups full of rectal bleeding and now feeling a little short of breath and also nauseated and also fatigued and came to the hospital. He was found to have rectal bleeding, was admitted for blood transfusion and possible colonoscopy again by Dr. Parks. PAST MEDICAL HISTORY: History of hypertension, history of coronary artery disease, history of stents recently, history of hypertension, and history of reflux esophagitis. SURGICAL HISTORY: History of PTCA, history of hernia repair, history of right and left knee surgery and shoulder surgery. MEDICATIONS 1. Allopurinol 100 mg three tablets daily. 2. Aspirin 81 mg, which is in hold. 3. Atorvastatin 40 mg at nighttime. 4. Plavix 75 mg, which is on hold. 5. Losartan 25 mg. 6. Pantoprazole 40 mg. 7. Metoprolol 12.5 mg twice a day. ALLERGIES: ALLERGIC TO MORPHINE. REVIEW OF SYSTEMS: Negative for chest pain. Positive for shortness of breath. Positive for nausea. No vomiting. No diarrhea. No constipation. Possible rectal bleeding. No hematemesis. No diplopia. Positive for blurry vision after all the rectal bleeding. SOCIAL HISTORY: No EtOH. No IV drug abuse. PHYSICAL EXAMINATION GENERAL: The patient is alert and oriented times 3. Did receive platelets today. VITAL SIGNS: Temperature is 98.2, blood pressure is 143/94. HEENT: Normocephalic, atraumatic. Possible pallor. CVS: S1, S2 tachycardiac. ABDOMEN: Nontender, nondistended. EXTREMITIES: No clubbing, no cyanosis, no edema. LABORATORY EVALUATION: Initial white count is 15,000, second was 13,000. Hemoglobin of 10.4 initially when he came in and the hematocrit was 31.4. Repeat is 7.8 and 23.0. Neutrophil count was 12.6, then 9.1. The patient's chemistry--sodium of 139, BUN of 23, creatinine of 1.01, lactic acid was 31.8. ALT/AST 62 and 112. Alkaline phosphatase 288. Troponins times 2 has been negative. ASSESSMENT: Acute gastrointestinal bleed. The patient has received some jumbo platelets. We are going go ahead and transfuse the patient 2 units of packed red blood cells and 20 of Lasix in between. Check his post transfusion hemoglobin and hematocrit. Probably will need colonoscopy to look at the colon again. We will continue monitoring the patient. We will restart his metoprolol and Losartan today. Further recommendation per clinical course. We will continue to monitor the patient. Also, we had lactic acid repeated. It was 31.8. We will repeat it again today and white count trended. No signs of infection at this time. Further recommendations per clinical course. We will continue to monitor the patient along with the consultants. Job#: [id number] EVON
[2018-06-28] MEDS: ATORVASTATIN 40 MG TAB PO SCH (21:57)
[2018-06-28] MEDS: PANTOPRAZOLE 40 MG 10ML VIAL IV SCH (21:57)
[2018-06-28] MEDS: LOSARTAN POTASSIUM 25 MG TAB PO SCH (21:57)
[2018-06-28] MEDS: FUROSEMIDE INJ 10 MG/ML 2 ML VIAL IV PRN (21:58)
--- NOTE | 2018-06-28 23:00 | NUR ---
Transfusing 2 of 2 units PRBC's at this time as order. Will continue to monitor.
[2018-06-29] VITALS (11 sets, daily range): BP systolic 91–159; BP diastolic 59–94
[2018-06-29 00:06] LABS: BASOPHILS % 0.4 % (0.0-1.0); EOSINOPHILS # (AUTO) 0.1 (0.0-0.4); EOSINOPHILS % 0.6 % (0.0-6.0); HEMATOCRIT 27.2 % (38.2-49.6); HEMOGLOBIN 9.2 g/dL (14.0-18.0); LYMPHOCYTES # (AUTO) 2.7 (1.0-3.2); LYMPHOCYTES % 24.2 % (18.0-39.1); MEAN CORPUSCULAR HEMOGLOBIN 30.7 pg (28-32); MEAN CORPUSCULAR HGB CONC 33.8 g/dL (31-35); MEAN CORPUSCULAR VOLUME 90.7 fL (81-99); MONOCYTES % 9.3 % (4.4-11.3); NEUTROPHILS % 63.9 % (38.7-80.0); PLATELET COUNT 309 x10e3/uL (140-360); RED CELL DISTRIBUTION WIDTH 14.6 % (11.7-14.4)
--- NOTE | 2018-06-29 00:46 | NUR ---
Dr. Maguire round the patient. NNO.
[2018-06-29] MEDS: FUROSEMIDE INJ 10 MG/ML 2 ML VIAL IV PRN (01:19)
[2018-06-29 05:07] LABS: BASOPHILS # (AUTO) 0.1 (0.0-0.1); BASOPHILS % 0.6 % (0.0-1.0); EOSINOPHILS # (AUTO) 0.1 (0.0-0.4); EOSINOPHILS % 0.9 % (0.0-6.0); HEMATOCRIT 29.7 % (38.2-49.6); LYMPHOCYTES # (AUTO) 2.5 (1.0-3.2); LYMPHOCYTES % 25.7 % (18.0-39.1); MEAN CORPUSCULAR HEMOGLOBIN 29.9 pg (28-32); MEAN CORPUSCULAR HGB CONC 33.7 g/dL (31-35); MEAN CORPUSCULAR VOLUME 88.7 fL (81-99); MONOCYTES # (AUTO) 1.1 (0.2-0.8); MONOCYTES % 10.8 % (4.4-11.3); NEUTROPHILS # (AUTO) 5.9 (2.1-6.9); NEUTROPHILS % 59.7 % (38.7-80.0); PLATELET COUNT 322 x10e3/uL (140-360); RED BLOOD COUNT 3.35 x10e6/uL (4.3-5.7); RED CELL DISTRIBUTION WIDTH 15.3 % (11.7-14.4)
[2018-06-29 05:46] LABS: CREATINE KINASE MB 0.7 ng/mL (0-5.0)
[2018-06-29 06:06] LABS: ALANINE AMINOTRANSFERASE 76 IU/L (0-55); ALBUMIN 3.2 g/dL (3.5-5.0); ALBUMIN/GLOBULIN RATIO 1.2 (0.8-2.0); ALKALINE PHOSPHATASE 226 IU/L (40-150); ANION GAP 12.4 mmol/L (8-16); BLOOD UREA NITROGEN 20 mg/dL (7-26); BUN/CREATININE RATIO 21 (6-25); CALCIUM 8.5 mg/dL (8.4-10.2); CARBON DIOXIDE 26 mmol/L (22-29); CHLORIDE 103 mmol/L (98-107); CREATININE, SERUM 0.94 mg/dL (0.72-1.25); EST GLOMERULAR FILTRATION RATE > 60 ML/MIN (60-); GLUCOSE 81 mg/dL (74-118); POTASSIUM 3.4 mmol/L (3.5-5.1); SODIUM 138 mmol/L (136-145)
[2018-06-29 06:29] LABS: EOSINOPHILS % (MANUAL) 3 % (0-7); LYMPHOCYTES % (MANUAL) 31 % (19-48); METAMYELOCYTES % (MANUAL) 2 % (0-0); MONOCYTES % (MANUAL) 7 % (3.4-9.0); NEUTROPHILS % (MANUAL) 57 % (40-74)
[2018-06-29 06:30] LABS: ANISOCYTOSIS SLIGHT; HYPOCHROMASIA SLIGHT; PLATELET ESTIMATE ADEQUATE; PLATELET MORPHOLOGY COMMENT FEW LARGE; RBC MORPHOLOGY COMMENT NORMAL
[2018-06-29] MEDS ORDERED: POTASSIUM CHLORIDE 20MEQ/100ML 100 ML IV ONE (07:00)
--- NOTE | 2018-06-29 07:05 | NUR ---
Report given to upcoming nurse
--- NOTE | 2018-06-29 07:19 | Progress Note ---
DATE: June 29, 2018 Patient is here for acute GI bleed. Currently, no bowel movements are noted and there is no rectal bleeding either. Patient has been seen by Dr. Parks. Two units of PRBCs have been transfused. The patient's hemoglobin has come up. He is feeling better. No chest pains. No shortness of breath. No rectal bleeding is noted. OBJECTIVE VITAL SIGNS: Temperature is 98.4, pulse of 63, blood pressure 114/84, pulse oximetry 97%. HEENT: Normocephalic and atraumatic. Pupils are reactive to light and accommodation. CV: S1 and S2 normal. Regular rate and rhythm. ABDOMEN: Nontender and nondistended. EXTREMITIES: No clubbing. No cyanosis. No edema. Hemoglobin is 10 and hematocrit of 29.7. Chemistry: Sodium is 138, potassium is 3.4, total bilirubin of 1.9. ALT, AST and alkaline phosphatase are coming down. The patient's coags are normal. MICROBIOLOGY: Blood cultures are pending. The patient's lactic acid has come down from yesterday. White count has come down from yesterday. ASSESSMENT 1. Acute gastrointestinal bleed: Plan is to continue monitoring the patient. Cardiology consult will be done to restart Plavix. Gastroenterology to evaluate the need for colonoscopy. Will continue monitoring the patient. Further recommendations per clinical course. If the patient stays, will do a CBC and BMP in the morning. The patient is currently n.p.o. Will again consult gastroenterology if colonoscopy is required or not. 2. Coronary artery disease. 3. Hypokalemia: Will go ahead and replace his potassium. Job#: [id number] [place]
[2018-06-29] MEDS: SODIUM CHLORIDE 0.9% 1000ML 1,000 ML IV SCH ×2 (07:40→08:45)
[2018-06-29] MEDS: PANTOPRAZOLE 40 MG 10ML VIAL IV SCH ×2 (08:46→21:02)
[2018-06-29] MEDS ORDERED: METOPROLOL 12.5 MG PO SCH (09:00)
[2018-06-29] MEDS: METOPROLOL TARTRATE 25 MG TAB PO SCH (09:02)
--- NOTE | 2018-06-29 09:02 | NUR ---
Dye Padder Operator to bedside to discuss plan of care with patient/family. CM/SW role and care transitions discussed. Anticipated discharge plan discussed along with duration of care. CM discussed patients right to make decisions in care. CM/SW work hours given. Patient lives: PATIENT LIVES IN [place], [place] WITH Admit/Transfer: ED POA/Emergency contact: - KARISHMA MAYES Current/Previous Home Health: NONE PCP/Follow-up Care: DR. STEVE GOSS Current/Previous DME: NONE AT THIS TIME; PATIENT INDEPENDENT Other Services: NONE Employment Status: EMPLOYED Areas of Concerns: NONE AT THIS TIME Referral Needs: NONE AT THIS TIME Education Needs: NONE IMM/DOZIER given and signed (if applicable): NO Goal for discharge: RETURN HOME WITH NO NEEDS CM left business card at the bedside with contact information. Name and number was also written on the patients whiteboard. Patient verbalized understanding of discussion. CM will follow-up with ongoing discharge and transition of care needs.
[2018-06-29 09:23] LABS: BILIRUBIN,URINE NEGATIVE (NEGATIVE); CLARITY,URINE CLEAR (CLEAR); COLOR,URINE YELLOW (YELLOW); KETONES,URINE NEGATIVE (NEGATIVE); LEUKOCYTE ESTERASE ,URINE NEGATIVE (NEGATIVE); NITRITE,URINE NEGATIVE (NEGATIVE); PROTEIN,URINE DIPSTICK NEGATIVE (NEGATIVE); URINE UROBILINOGEN 0.2 mg/dL (0.2 - 1)
[2018-06-29 09:35] LABS: EPITHELIAL CELLS,URINE RARE /LPF
--- NOTE | 2018-06-29 11:11 | NUR ---
MD Gomes paged to notify that pt is not tolerating IV KCl even at 5 mEq/hr, and that pt requests home med Allopurinol to prevent a gout flare. Awaiting response.
[2018-06-29 12:46] LABS: BASOPHILS # (AUTO) 0.1 (0.0-0.1); BASOPHILS % 0.5 % (0.0-1.0); EOSINOPHILS # (AUTO) 0.1 (0.0-0.4); EOSINOPHILS % 1.5 % (0.0-6.0); HEMATOCRIT 31.5 % (38.2-49.6); HEMOGLOBIN 10.5 g/dL (14.0-18.0); LYMPHOCYTES # (AUTO) 2.7 (1.0-3.2); LYMPHOCYTES % 28.2 % (18.0-39.1); MEAN CORPUSCULAR HEMOGLOBIN 29.8 pg (28-32); MEAN CORPUSCULAR HGB CONC 33.3 g/dL (31-35); MEAN CORPUSCULAR VOLUME 89.5 fL (81-99); MONOCYTES % 10.8 % (4.4-11.3); NEUTROPHILS # (AUTO) 5.4 (2.1-6.9); PLATELET COUNT 328 x10e3/uL (140-360); RED BLOOD COUNT 3.52 x10e6/uL (4.3-5.7); RED CELL DISTRIBUTION WIDTH 15.6 % (11.7-14.4)
[2018-06-29 13:06] LABS: ANION GAP 12.5 mmol/L (8-16); BLOOD UREA NITROGEN 21 mg/dL (7-26); BUN/CREATININE RATIO 22 (6-25); CALCIUM 8.7 mg/dL (8.4-10.2); CARBON DIOXIDE 26 mmol/L (22-29); CHLORIDE 103 mmol/L (98-107); CREATININE, SERUM 0.97 mg/dL (0.72-1.25); EST GLOMERULAR FILTRATION RATE > 60 ML/MIN (60-); GLUCOSE 69 mg/dL (74-118); POTASSIUM 3.5 mmol/L (3.5-5.1); SODIUM 138 mmol/L (136-145)
[2018-06-29] MEDS ORDERED: POTASSIUM CHLORIDE 20 MEQ TAB CR PO STA (13:22)
[2018-06-29] MEDS: ALLOPURINOL 300 MG TAB PO SCH (13:31)
--- NOTE | 2018-06-29 18:33 | Consultation ---
DATE OF CONSULTATION: June 29, 2018 CARDIAC CONSULTATION REASON FOR THE CONSULTATION: GI bleed in patient with known coronary artery disease. HISTORY: A 67-year-old gentleman who is very well known to me. On November 21, 2017, seen and evaluated at this institution. Patient had successful PCI and stenting of the left anterior descending coronary artery using 2.75 x 20 and 2.5 x 20 Synergy drug-eluted stents. Patient felt well since his procedure, very active. In the near Thanksgiving time he had chest pain while he was driving. He was near [facility]. He went there. He did a cardiac catheterization where he has been told the arteries are very clean and the stents are very good. Patient came to this institution. He was off aspirin and Plavix, and he had outpatient colonoscopy toward the end of May. He stayed off Plavix and aspirin for 5 days after that. He just started on Plavix for 3 days where he noted on Tuesday having lower GI bleed. He stopped immediately his Plavix, and he came to this institution because of continuation of melena, admitted to this institution. He is off his antiplatelet now for almost more than 3 weeks with the exception of 3 weeks 5 days after his colonoscopy. His H&H remains in the 10s. He is still having melena. Cardiac consultation is obtained. I visited with the patient. He denied having any angina. He is still having melena. He denied having any chest pain or shortness of breath. HOME MEDICATIONS: Include 1. Allopurinol 100 mg 3 times a day. 2. Lipitor 40 mg daily. 3. Losartan 25 mg a day. 4. Metoprolol 12.5 mg twice a day. 5. Protonix 40 mg a day. ALLERGIES: MORPHINE. REVIEW OF SYSTEMS: GENERAL: No fever, no chills. HEENT: No headache, no vision problem, no congestion. GI: As per acute illness, melena. : Past history of kidney stone but no active symptoms. MUSCULOSKELETAL: A few joint aches, but he does not take nonsteroidal. He takes only Tylenol for pain. HEMATOLOGICAL: No easy bruising or bleeding. NEUROLOGICAL: No headache, no seizure activity. SOCIAL HISTORY: He is . He is nonsmoker. He rarely takes a drink. 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 PAST MEDICAL HISTORY 1. Coronary artery disease status post PCI and stenting of the left anterior descending coronary artery in October 2017 using 2.75 x 20 and 2.5 x 20 Synergy stents. 2. Left knee replacement in 2009. 3. Right knee replacement in 2001. 4. Left shoulder surgery. 5. Right and left inguinal hernia surgery. 6. Umbilical hernia surgery. 7. Left ankle surgery. 8. History of kidney stone. 9. History of elevation of transaminase, chronic, and for that he had liver biopsy and workup in the past which were negative. 10. Recent colonoscopy with removal of 12 polyps. FAMILY HISTORY: Father at the age of 42 with major myocardial infarction. Mother of complications of pain management and migraine. No siblings. PHYSICAL EXAMINATION VITAL SIGNS: Height of 5 feet 6 inches, weight of 168 pounds, blood pressure 140/80, heart rate of 80, respiratory rate of 18, afebrile. HEENT: Pupils are equal, reactive. NECK: No elevation of jugular venous pulsation, no bruit. CHEST: Clear to auscultation and percussion. HEART: PMI 5th left intercostal space. Normal 1st and 2nd heart sounds. ABDOMEN: Soft, with good bowel sounds. EXTREMITIES: No cyanosis, no clubbing, no edema. NEUROLOGIC: Nonfocal. LAB DATA AND DIAGNOSTICS: Sodium of 138, potassium of 3.4, BUN of 20, creatinine of 0.9. White blood cell count of 9.9, hemoglobin of 10, hematocrit 30%, platelet count of 322,000. EKG showing no acute changes. AST, ALT are mildly elevated at 37 and 76 on the June. IMPRESSION AND PLAN 1. Acute gastrointestinal bleed. 2. Coronary artery disease status post percutaneous coronary intervention, hemodynamically stable. 3. Mild hypertension. 4. Severe degenerative joint disease. 5. Hyperlipidemia. 6. Mild chronic elevation of bilirubin and transaminase. RECOMMENDATION: Patient can be his antiplatelet until this problem resolved. Hemodynamically he will be observed. Depending on his course, further steps to be done. Job#: [id number] RUTH
[2018-06-29 18:46] LABS: BASOPHILS # (AUTO) 0.1 (0.0-0.1); BASOPHILS % 0.5 % (0.0-1.0); EOSINOPHILS # (AUTO) 0.2 (0.0-0.4); EOSINOPHILS % 1.9 % (0.0-6.0); HEMATOCRIT 30.6 % (38.2-49.6); HEMOGLOBIN 10.4 g/dL (14.0-18.0); LYMPHOCYTES # (AUTO) 2.6 (1.0-3.2); LYMPHOCYTES % 27.2 % (18.0-39.1); MEAN CORPUSCULAR HEMOGLOBIN 30.6 pg (28-32); MONOCYTES % 10.9 % (4.4-11.3); NEUTROPHILS # (AUTO) 5.4 (2.1-6.9); NEUTROPHILS % 57.2 % (38.7-80.0); PLATELET COUNT 313 x10e3/uL (140-360); RED CELL DISTRIBUTION WIDTH 15.4 % (11.7-14.4)
--- NOTE | 2018-06-29 19:00 | NUR ---
Report received from AM nurse Tony.Patient received comfortably resting on his bed. V/S WNL. Denied pain and No respiratory distress noted. Patient's in the room.Bed in lower position,locked. Call segundo within reach. Will continue to monitor.
[2018-06-29 19:05] LABS: BLOOD UREA NITROGEN 21 mg/dL (7-26); BUN/CREATININE RATIO 22 (6-25); CALCIUM 8.4 mg/dL (8.4-10.2); CARBON DIOXIDE 26 mmol/L (22-29); CHLORIDE 103 mmol/L (98-107); CREATININE, SERUM 0.95 mg/dL (0.72-1.25); EST GLOMERULAR FILTRATION RATE > 60 ML/MIN (60-); GLUCOSE 87 mg/dL (74-118); SODIUM 137 mmol/L (136-145)
[2018-06-29] MEDS: ATORVASTATIN 40 MG TAB PO SCH (21:03)
[2018-06-29] MEDS: LOSARTAN POTASSIUM 25 MG TAB PO SCH (21:03)
--- NOTE | 2018-06-30 02:10 | NUR ---
Dr. Maguire round the patient. MD ordered Full liquid diet at this time.
[2018-06-30 04:58] VITALS: BP 129/78
[2018-06-30 05:05] LABS: BASOPHILS % 0.5 % (0.0-1.0); EOSINOPHILS # (AUTO) 0.3 (0.0-0.4); EOSINOPHILS % 3.6 % (0.0-6.0); HEMOGLOBIN 10.1 g/dL (14.0-18.0); LYMPHOCYTES # (AUTO) 1.7 (1.0-3.2); LYMPHOCYTES % 21.6 % (18.0-39.1); MEAN CORPUSCULAR HEMOGLOBIN 30.3 pg (28-32); MEAN CORPUSCULAR HGB CONC 33.7 g/dL (31-35); MEAN CORPUSCULAR VOLUME 90.1 fL (81-99); MONOCYTES # (AUTO) 0.8 (0.2-0.8); MONOCYTES % 10.4 % (4.4-11.3); NEUTROPHILS # (AUTO) 4.8 (2.1-6.9); PLATELET COUNT 307 x10e3/uL (140-360); RED BLOOD COUNT 3.33 x10e6/uL (4.3-5.7); RED CELL DISTRIBUTION WIDTH 15.1 % (11.7-14.4)
[2018-06-30 05:37] LABS: ANION GAP 11.9 mmol/L (8-16); BLOOD UREA NITROGEN 17 mg/dL (7-26); BUN/CREATININE RATIO 18 (6-25); CALCIUM 8.6 mg/dL (8.4-10.2); CARBON DIOXIDE 27 mmol/L (22-29); CHLORIDE 105 mmol/L (98-107); CREATININE, SERUM 0.92 mg/dL (0.72-1.25); EST GLOMERULAR FILTRATION RATE > 60 ML/MIN (60-); GLUCOSE 84 mg/dL (74-118); POTASSIUM 3.9 mmol/L (3.5-5.1); SODIUM 140 mmol/L (136-145)
[2018-06-30 06:22] LABS: EOSINOPHILS % (MANUAL) 5 % (0-7); LYMPHOCYTES % (MANUAL) 25 % (19-48); MONOCYTES % (MANUAL) 10 % (3.4-9.0); NEUTROPHILS % (MANUAL) 56 % (40-74)
[2018-06-30 06:24] LABS: ANISOCYTOSIS S; PLATELET ESTIMATE ADEQUATE; PLATELET MORPHOLOGY COMMENT NORMAL; POIKILOCYTOSIS S; POLYCHROMASIA FEW; RBC MORPHOLOGY COMMENT ABNORMAL
--- NOTE | 2018-06-30 07:13 | NUR ---
Report given to upcoming BRIGIDA Shaw.
--- NOTE | 2018-06-30 07:23 | Progress Note ---
DATE: June 30, 2018 Patient is here for acute GI bleed. Currently, the patient is afebrile. No bleeding at all. Patient did not have a bowel movement yet. On a clear liquid diet and tolerating very well. Patient has not restarted back on his Plavix. Cardiology has held the patient's Plavix and his aspirin. No other complaints. No chest pain or shortness of breath. No nausea, vomiting, diarrhea. No hematochezia. No hematemesis either. MEDICATIONS: The patient is currently on allopurinol, atorvastatin, furosemide, losartan, metoprolol, and pantoprazole. OBJECTIVE VITAL SIGNS: Temperature is 98.4, pulse is 52, blood pressure is 129/78, pulse oximetry 97% on room air. HEENT: Normocephalic and atraumatic. Normal pallor present. No icterus present. CV: S1 and S2 normal. Regular rate and rhythm. ABDOMEN: Nontender and nondistended. EXTREMITIES: No clubbing. No cyanosis. No edema. LABORATORY VALUES: White count is 8.1, hemoglobin of 10.1 and hematocrit of 30.1, holding steady. Chemistry: BUN of 17, creatinine of 0.92. Liver enzymes have trended down. ASSESSMENT 1. Acute gastrointestinal bleed: Status post colonoscopy with polyp resection. Patient is currently stable. Will continue monitoring his hemoglobin and hematocrit. Patient can be discharged if he has a normal bowel movement. 2. Coronary artery disease: Continue on metoprolol and ARB. Continue monitoring the patient. Further recommendations per clinical course. Patient can be discharged if he has a regular bowel movement. Job#: [id number] KENYETTA
--- NOTE | 2018-06-30 07:30 | NUR ---
PT ASSISTED TO SHOWER, LINENS CHANGED
[2018-06-30 08:00] VITALS: BP 133/94
[2018-06-30] MEDS: ALLOPURINOL 300 MG TAB PO SCH (08:13)
[2018-06-30] MEDS: PANTOPRAZOLE 40 MG 10ML VIAL IV SCH ×2 (08:13→20:52)
[2018-06-30] MEDS: METOPROLOL TARTRATE 25 MG TAB PO SCH (08:13)
--- NOTE | 2018-06-30 11:15 | NUR ---
REPORTED TO DR. Rosy JONES OF PATIENT DARK STOOLS WITH BRIGHT RED BLOOD WHEN WIPING. MD STATES WILL CONTINUE TO MONITOR FOR NOW.
[2018-06-30 11:23] LABS: BASOPHILS # (AUTO) 0.1 (0.0-0.1); BASOPHILS % 0.6 % (0.0-1.0); EOSINOPHILS # (AUTO) 0.3 (0.0-0.4); EOSINOPHILS % 3.1 % (0.0-6.0); HEMATOCRIT 32.6 % (38.2-49.6); HEMOGLOBIN 10.9 g/dL (14.0-18.0); LYMPHOCYTES # (AUTO) 2.2 (1.0-3.2); MEAN CORPUSCULAR HEMOGLOBIN 30.1 pg (28-32); MEAN CORPUSCULAR HGB CONC 33.4 g/dL (31-35); MEAN CORPUSCULAR VOLUME 90.1 fL (81-99); MONOCYTES # (AUTO) 0.8 (0.2-0.8); MONOCYTES % 7.8 % (4.4-11.3); NEUTROPHILS # (AUTO) 6.9 (2.1-6.9); NEUTROPHILS % 64.2 % (38.7-80.0); PLATELET COUNT 360 x10e3/uL (140-360); RED BLOOD COUNT 3.62 x10e6/uL (4.3-5.7)
[2018-06-30 12:00] VITALS: BP 155/99
[2018-06-30] MEDS: DICYCLOMINE HCL 20 MG TAB PO SCH ×3 (13:28→20:52)
[2018-06-30 14:35] LABS: BAND NEUTROPHILS % (MANUAL) 1 %; BLAST CELLS % MANUAL 2; EOSINOPHILS % (MANUAL) 2 % (0-7); LYMPHOCYTES % (MANUAL) 21 % (19-48); MONOCYTES % (MANUAL) 6 % (3.4-9.0); MYELOCYTES % (MANUAL) 3 % (0-0); NEUTROPHILS % (MANUAL) 64 % (40-74)
[2018-06-30 14:38] LABS: HYPOCHROMASIA SLIGHT; PLATELET ESTIMATE ADEQUATE; PLATELET MORPHOLOGY COMMENT NORMAL; RBC MORPHOLOGY COMMENT NORMAL
[2018-06-30 16:00] VITALS: BP 130/83
[2018-06-30 18:43] LABS: BASOPHILS % 0.4 % (0.0-1.0); EOSINOPHILS # (AUTO) 0.3 (0.0-0.4); EOSINOPHILS % 3.2 % (0.0-6.0); HEMATOCRIT 31.1 % (38.2-49.6); HEMOGLOBIN 10.5 g/dL (14.0-18.0); LYMPHOCYTES # (AUTO) 1.6 (1.0-3.2); LYMPHOCYTES % 16.3 % (18.0-39.1); MEAN CORPUSCULAR HEMOGLOBIN 30.3 pg (28-32); MEAN CORPUSCULAR HGB CONC 33.8 g/dL (31-35); MEAN CORPUSCULAR VOLUME 89.6 fL (81-99); MONOCYTES # (AUTO) 0.9 (0.2-0.8); MONOCYTES % 9.2 % (4.4-11.3); NEUTROPHILS # (AUTO) 6.7 (2.1-6.9); NEUTROPHILS % 67.5 % (38.7-80.0); PLATELET COUNT 351 x10e3/uL (140-360); RED BLOOD COUNT 3.47 x10e6/uL (4.3-5.7)
[2018-06-30 20:16] VITALS: BP 130/76
[2018-06-30] MEDS: LOSARTAN POTASSIUM 25 MG TAB PO SCH (20:52)
[2018-06-30] MEDS: ATORVASTATIN 40 MG TAB PO SCH (20:52)
--- NOTE | 2018-06-30 21:30 | NUR ---
GAVE REPORTS TO KELSI ALLRED, PATIENT STABLE, TRANSFERRED HIM WITH WHEEL CHAIR.
--- NOTE | 2018-06-30 21:45 | NUR ---
Patient received via W/C from OBS. Assessment done. Patient is AAO x 3. No complaints of pain. No signs of respiratory distress. Patient oriented to room, call light and plan of care. Bed locked and in lowest position. Bed rails up x 2. Patient instructed to call for assistance when needed. Call light within reach.
[2018-06-30 21:47] VITALS: BP 127/70
[2018-07-01] VITALS (7 sets, daily range): BP systolic 115–156; BP diastolic 64–79
--- NOTE | 2018-07-01 00:30 | NUR ---
Blood sample sent to lab for analysis.
[2018-07-01 00:44] LABS: BASOPHILS % 0.4 % (0.0-1.0); EOSINOPHILS # (AUTO) 0.3 (0.0-0.4); EOSINOPHILS % 2.9 % (0.0-6.0); HEMATOCRIT 29.3 % (38.2-49.6); LYMPHOCYTES # (AUTO) 1.5 (1.0-3.2); LYMPHOCYTES % 13.2 % (18.0-39.1); MEAN CORPUSCULAR HEMOGLOBIN 30.9 pg (28-32); MEAN CORPUSCULAR HGB CONC 34.1 g/dL (31-35); MEAN CORPUSCULAR VOLUME 90.4 fL (81-99); MONOCYTES % 8.5 % (4.4-11.3); NEUTROPHILS # (AUTO) 8.1 (2.1-6.9); NEUTROPHILS % 71.2 % (38.7-80.0); RED BLOOD COUNT 3.24 x10e6/uL (4.3-5.7); RED CELL DISTRIBUTION WIDTH 14.7 % (11.7-14.4)
[2018-07-01 00:46] LABS: PLATELET COUNT 314 x10e3/uL (140-360)
[2018-07-01 05:11] LABS: BASOPHILS % 0.4 % (0.0-1.0); EOSINOPHILS # (AUTO) 0.3 (0.0-0.4); EOSINOPHILS % 2.6 % (0.0-6.0); HEMATOCRIT 29.5 % (38.2-49.6); LYMPHOCYTES # (AUTO) 1.2 (1.0-3.2); LYMPHOCYTES % 10.1 % (18.0-39.1); MEAN CORPUSCULAR HEMOGLOBIN 30.4 pg (28-32); MEAN CORPUSCULAR HGB CONC 33.9 g/dL (31-35); MEAN CORPUSCULAR VOLUME 89.7 fL (81-99); MONOCYTES % 8.7 % (4.4-11.3); NEUTROPHILS # (AUTO) 8.5 (2.1-6.9); NEUTROPHILS % 74.8 % (38.7-80.0); PLATELET COUNT 318 x10e3/uL (140-360); RED BLOOD COUNT 3.29 x10e6/uL (4.3-5.7); RED CELL DISTRIBUTION WIDTH 14.9 % (11.7-14.4)
--- NOTE | 2018-07-01 07:20 | NUR ---
Patient resting comfortably. Shift report given to oncoming nurse.
[2018-07-01] MEDS: ALLOPURINOL 300 MG TAB PO SCH (08:41)
[2018-07-01] MEDS: PANTOPRAZOLE 40 MG 10ML VIAL IV SCH ×2 (08:41→22:55)
[2018-07-01] MEDS: DICYCLOMINE HCL 20 MG TAB PO SCH ×4 (08:41→22:55)
[2018-07-01] MEDS: COLESTIPOL HCL 1 G TAB PO SCH (08:41)
[2018-07-01] MEDS: METOPROLOL TARTRATE 25 MG TAB PO SCH (08:42)
--- NOTE | 2018-07-01 10:27 | Progress Note ---
DATE: July 01, 2018 SUBJECTIVE: This patient is here for acute GI bleed, currently patient did have two bowel movements yesterday. It was black and tarry and melanotic. So, patient had melena. Currently afebrile. No complaints. He has had no bowel movements today. PHYSICAL EXAMINATION VITAL SIGNS: Temperature is 99.1, pulse of 69, respirations of 18, blood pressure 144/79, and pulse oximetry 97% on room air. HEENT: Normocephalic and atraumatic. Pupils are reactive to light and accommodation. CVS: S1 and S2 normal. Regular rate and rhythm. ABDOMEN: Nontender and nondistended. Bowel sounds are present. EXTREMITIES: No clubbing. No cyanosis. No edema. LABORATORY VALUES: White count was 11,000 today, hemoglobin of 10, hematocrit of 29.4. There has been small left shift to 8.5 of neutrophil. Coags: PT 13.2 from June 28, 2018, INR 0.92. Chemistries have been normal. BUN and creatinine has been normal too. ASSESSMENT AND PLAN 1. Acute gastrointestinal bleed. Continue monitoring the patient. Hemoglobin has been stable. The patient can be discharged if he has normal bowel movements without any melena. 2. Coronary artery disease. Continue metoprolol and ARB. Continue holding the Plavix and the aspirin at this time. Further recommendation per clinical course. We will continue monitoring the patient along with the consultants. Job#: [id number] HUSSEIN
[2018-07-01 12:03] LABS: BASOPHILS % 0.3 % (0.0-1.0); EOSINOPHILS # (AUTO) 0.3 (0.0-0.4); EOSINOPHILS % 3.5 % (0.0-6.0); HEMOGLOBIN 9.7 g/dL (14.0-18.0); LYMPHOCYTES # (AUTO) 1.2 (1.0-3.2); LYMPHOCYTES % 13.6 % (18.0-39.1); MEAN CORPUSCULAR HEMOGLOBIN 30.4 pg (28-32); MEAN CORPUSCULAR HGB CONC 33.4 g/dL (31-35); MEAN CORPUSCULAR VOLUME 90.9 fL (81-99); MONOCYTES # (AUTO) 0.9 (0.2-0.8); MONOCYTES % 10.4 % (4.4-11.3); NEUTROPHILS # (AUTO) 6.2 (2.1-6.9); PLATELET COUNT 310 x10e3/uL (140-360); RED BLOOD COUNT 3.19 x10e6/uL (4.3-5.7); RED CELL DISTRIBUTION WIDTH 14.8 % (11.7-14.4)
[2018-07-01 13:46] LABS: BAND NEUTROPHILS % (MANUAL) 1 %; EOSINOPHILS % (MANUAL) 4 % (0-7); LYMPHOCYTES % (MANUAL) 17 % (19-48); MONOCYTES % (MANUAL) 7 % (3.4-9.0); NEUTROPHILS % (MANUAL) 71 % (40-74); NUCLEATED RED BLOOD CELLS 2; PLATELET ESTIMATE ADEQUATE; PLATELET MORPHOLOGY COMMENT NORMAL; RBC MORPHOLOGY COMMENT NORMAL
[2018-07-01 14:19] LABS: LYMPHOCYTES % (MANUAL) 15 % (19-48); MONOCYTES % (MANUAL) 11 % (3.4-9.0); NEUTROPHILS % (MANUAL) 74 % (40-74); PLATELET ESTIMATE ADEQUATE; PLATELET MORPHOLOGY COMMENT NORMAL; RBC MORPHOLOGY COMMENT NORMAL
[2018-07-01 18:08] LABS: BASOPHILS % 0.3 % (0.0-1.0); EOSINOPHILS # (AUTO) 0.4 (0.0-0.4); EOSINOPHILS % 4.1 % (0.0-6.0); HEMATOCRIT 29.1 % (38.2-49.6); HEMOGLOBIN 9.8 g/dL (14.0-18.0); LYMPHOCYTES # (AUTO) 1.3 (1.0-3.2); LYMPHOCYTES % 15.5 % (18.0-39.1); MEAN CORPUSCULAR HEMOGLOBIN 30.4 pg (28-32); MEAN CORPUSCULAR HGB CONC 33.7 g/dL (31-35); MEAN CORPUSCULAR VOLUME 90.4 fL (81-99); MONOCYTES # (AUTO) 0.9 (0.2-0.8); MONOCYTES % 10.8 % (4.4-11.3); NEUTROPHILS # (AUTO) 5.7 (2.1-6.9); NEUTROPHILS % 65.6 % (38.7-80.0); PLATELET COUNT 295 x10e3/uL (140-360); RED BLOOD COUNT 3.22 x10e6/uL (4.3-5.7); RED CELL DISTRIBUTION WIDTH 14.9 % (11.7-14.4)
[2018-07-01 19:06] LABS: EOSINOPHILS % (MANUAL) 4 % (0-7); LYMPHOCYTES % (MANUAL) 22 % (19-48); MONOCYTES % (MANUAL) 13 % (3.4-9.0); NEUTROPHILS % (MANUAL) 59 % (40-74); NUCLEATED RED BLOOD CELLS 2
--- NOTE | 2018-07-01 19:20 | NUR ---
report given to oncoming nurse, for continued care.
--- NOTE | 2018-07-01 19:30 | NUR ---
Patient received resting in bed. AAO x 3. No acute distress noted. Fall precautions maintained. Call light within reach.
[2018-07-01] MEDS: LOSARTAN POTASSIUM 25 MG TAB PO SCH (22:55)
[2018-07-01] MEDS: ATORVASTATIN 40 MG TAB PO SCH (22:55)
[2018-07-02] VITALS (7 sets, daily range): BP systolic 120–151; BP diastolic 54–94
--- NOTE | 2018-07-02 07:13 | NUR ---
Shift report given to oncoming nurse. Patient in stable condition.
[2018-07-02] MEDS: PANTOPRAZOLE 40 MG 10ML VIAL IV SCH ×2 (09:00→20:55)
[2018-07-02] MEDS: DICYCLOMINE HCL 20 MG TAB PO SCH ×4 (09:00→20:55)
[2018-07-02] MEDS: METOPROLOL TARTRATE 25 MG TAB PO SCH (09:00)
[2018-07-02] MEDS: ALLOPURINOL 300 MG TAB PO SCH (09:00)
[2018-07-02] MEDS: COLESTIPOL HCL 1 G TAB PO SCH (09:00)
--- NOTE | 2018-07-02 09:05 | Progress Note ---
DATE: July 02, 2018 SUBJECTIVE: Patient is here for acute rectal bleeding. Currently, the patient has not had bowel movement today. Had a melanotic stool yesterday, but currently no stools. No abdominal pain. Able to tolerate diet. No complaints. OBJECTIVE VITAL SIGNS: Temperature is 98.3, pulse of 78, respirations of 18, blood pressure is 151/69. HEENT: Normocephalic, atraumatic. No icterus. No pallor present. CVS: S1, S2 normal. Regular rate and rhythm. ABDOMEN: Nontender, nondistended. EXTREMITIES: No clubbing. No cyanosis. No edema. LABORATORY VALUES: Hemoglobin is holding steady at 9.8 and 29.1. Chemistries; BUN and creatinine are normal at 17 and 0.92. ASSESSMENT AND PLAN 1. Acute gastrointestinal bleed. Continue to monitor the patient. 2. Coronary artery disease. Continue on metoprolol and ARBs. Plavix and aspirin have been stopped until further notice. Patient can be discharged home as soon as he has a normal bowel movement. I did discuss the case with Dr. Parks. Job#: [id number]
--- NOTE | 2018-07-02 19:25 | NUR ---
Patient received lying in bed. AAO x 3. No acute distress noted at this time. Call light within reach.
[2018-07-02] MEDS ORDERED: BISACODYL 10 MG SUPP PR ONE (20:15)
--- NOTE | 2018-07-02 20:20 | NUR ---
Dr. Jimbo Parks here to see patient. New order received.
--- NOTE | 2018-07-02 20:42 | NUR ---
Blood specimen sent to lab for CBC analysis.
[2018-07-02 20:47] LABS: BASOPHILS % 0.3 % (0.0-1.0); EOSINOPHILS # (AUTO) 0.6 (0.0-0.4); EOSINOPHILS % 5.8 % (0.0-6.0); HEMATOCRIT 31.5 % (38.2-49.6); HEMOGLOBIN 10.4 g/dL (14.0-18.0); LYMPHOCYTES # (AUTO) 1.8 (1.0-3.2); LYMPHOCYTES % 19.4 % (18.0-39.1); MEAN CORPUSCULAR HEMOGLOBIN 30.4 pg (28-32); MEAN CORPUSCULAR VOLUME 92.1 fL (81-99); MONOCYTES # (AUTO) 1.2 (0.2-0.8); NEUTROPHILS # (AUTO) 5.5 (2.1-6.9); PLATELET COUNT 316 x10e3/uL (140-360); RED BLOOD COUNT 3.42 x10e6/uL (4.3-5.7); RED CELL DISTRIBUTION WIDTH 14.8 % (11.7-14.4)
[2018-07-02] MEDS: LOSARTAN POTASSIUM 25 MG TAB PO SCH (20:55)
[2018-07-02] MEDS: ATORVASTATIN 40 MG TAB PO SCH (20:55)
[2018-07-03] VITALS: BP 141/91
[2018-07-03 00:59] VITALS: BP 143/94
[2018-07-03 04:00] VITALS: BP 137/86
[2018-07-03] MEDS ORDERED: METHYLPREDNISOLONE SOD SUCC 40 MG/ML VIAL 1ML IV ONE (07:15)
--- NOTE | 2018-07-03 07:34 | Progress Note ---
DATE: July 03, 2018 SUBJECTIVE: This 67-year-old male comes in with acute GI bleed. The patient is currently afebrile, no complaints. Did have a stool yesterday, and it was slightly melenic, also with some blood in it. Patient does complain of right lower foot gouty attack, which he usually has. MEDICATIONS: Allopurinol, atorvastatin, colestipol, dicyclomine, furosemide, losartan, metoprolol, and pantoprazole. OBJECTIVE VITAL SIGNS: Temperature is 97.3, pulse 78, respirations 18. Blood pressure is 137/86. HEENT: Normocephalic, atraumatic. Pupils react to light and accommodation. No icterus. No pallor. CVS: S1, S2 normal. Regular rhythm. ABDOMEN: Nontender, nondistended. EXTREMITIES: No clubbing. No cyanosis. No edema. ASSESSMENT AND PLAN 1. Acute gastrointestinal bleed, stable. The patient's hemoglobin today was 10.4 and hematocrit 31.5. Chemistries were normal, too. The plan is to discharge the patient home. Hold the Plavix. Hold the colestipol. See the patient back in the clinic in about 3 to 4 days. Check his H and H. 2. For his gout, we will go ahead and give him Solu-Medrol 80 mg IV right now. 3. Coronary artery disease. Will keep him off the Plavix for 2 to 3 weeks more. Further recommendations per the clinical course. Will continue to monitor the patient as an outpatient. Job#: [id number]
[2018-07-03 08:00] VITALS: BP 142/87
[2018-07-03 08:49] VITALS: BP 142/87
[2018-07-03] MEDS: DICYCLOMINE HCL 20 MG TAB PO SCH (08:49)
[2018-07-03] MEDS: METOPROLOL TARTRATE 25 MG TAB PO SCH (08:49)
[2018-07-03] MEDS: ALLOPURINOL 300 MG TAB PO SCH (08:49)
[2018-07-03] MEDS: PANTOPRAZOLE 40 MG 10ML VIAL IV SCH (08:49)
[2018-07-03] MEDS: COLESTIPOL HCL 1 G TAB PO SCH (08:49)
--- NOTE | 2018-07-03 09:12 | NUR ---
PATIENT DISCHARGING HOME WITH NO NEEDS
== END 2018-07-03 10:43 | disposition home or self-care (01) | DRG 394 ==
LOC: ER 09:40 → ERHOLD 11:53 → IMCU 12:36 → MED/SURG2 06-30 21:43
PROVIDERS: ADMIT Family Medicine; ATTEND Family Medicine
PROC: 30233R1 Transfusion of Nonautologous Platelets into Peripheral Vein, Percutaneous Approach (ICD-10-PCS; principal; 2018-06-28)
PROC: 30233N1 Transfusion of Nonautologous Red Blood Cells into Peripheral Vein, Percutaneous Approach (ICD-10-PCS; 2018-06-28)
DX: K91.89 Other postprocedural complications and disorders of digestive system (principal); D62 Acute posthemorrhagic anemia; Y84.8 Other medical procedures as the cause of abnormal reaction of the patient, or of later complication, without mention of misadventure at the time of the procedure; Y73.3 Surgical instruments, materials and gastroenterology and urology devices (including sutures) associated with adverse incidents; M10.9 Gout, unspecified
CPT/HCPCS: 36415; 71045; 80048; 80053; 81001; 82550; 82553; 83605; 83735; 84484; 85025; 85610; 85730; 86850; 86900; 86920; 87040; 87086; 93005; 99284; J1940; J2920; J3480; J7030; J7050; P9016; P9034

== ENCOUNTER → 2020-09-18 | Outpatient (CLI) | payer OTHER ==
[~2020-09-18] MED LIST changes: +IOPAMIDOL 370 MG/ML 200 ML INFUS..BTL INJ ONE; +SODIUM CHLORIDE 0.9% 50ML 50 ML ONE
[2020-09-18 16:24] LABS: BLOOD UREA NITROGEN 13 mg/dL (7-26); BUN/CREATININE RATIO 14 (6-25); CREATININE, SERUM 0.91 mg/dL (0.72-1.25); EST GLOMERULAR FILTRATION RATE > 60 ML/MIN (60-)
== END ==
LOC: CT 15:32
PROVIDERS: ATTEND Internal Medicine Gastroenterology
DX: R10.31 Right lower quadrant pain (principal)
CPT/HCPCS: 36415; 74177; 82565; 84520; Q9967

== ENCOUNTER → 2020-11-01 | Day surgery (SDC) | payer BC, OTHER ==
[2020-10-29 08:11] LABS: BASOPHILS % 0.6 % (0.0-1.0); EOSINOPHILS # (AUTO) 0.3 (0.0-0.4); EOSINOPHILS % 4.5 % (0.0-6.0); HEMOGLOBIN 14.1 g/dL (14.0-18.0); LYMPHOCYTES # (AUTO) 1.4 (1.0-3.2); LYMPHOCYTES % 21.1 % (18.0-39.1); MEAN CORPUSCULAR HEMOGLOBIN 30.7 pg (28-32); MEAN CORPUSCULAR HGB CONC 33.6 g/dL (31-35); MEAN CORPUSCULAR VOLUME 91.5 fL (81-99); MONOCYTES # (AUTO) 0.8 (0.2-0.8); MONOCYTES % 12.5 % (4.4-11.3); NEUTROPHILS # (AUTO) 3.9 (2.1-6.9); NEUTROPHILS % 61.1 % (38.7-80.0); PLATELET COUNT 281 x10e3/uL (140-360); RED BLOOD COUNT 4.59 x10e6/uL (4.3-5.7); RED CELL DISTRIBUTION WIDTH 14.5 % (11.7-14.4)
[~2020-11-01] MED LIST changes: +CIALIS2.5 MG PO; +FENTANYL CITRATE/PF 100MCG/2 ML INJ ONE; +HYOSCYAMINE SULFATE 0.5 MG/ML INJ ONE; -IOPAMIDOL 370 MG/ML 200 ML INFUS..BTL INJ ONE; +LOSARTAN-HCTZ1 EACH PO; +MIDAZOLAM HCL 2 MG/2 ML VIAL ONE; +PANTOPRAZOLE 40 MG 10ML VIAL ONE; +PROPOFOL IV EMULSION 10 MG/ML 20 ML VIAL ONE; -SODIUM CHLORIDE 0.9% 50ML 50 ML ONE
[2020-11-01 13:41] LABS: WBC,FECAL (FECAL LACTOFERRIN) NEGATIVE (NEGATIVE)
[2020-11-01 13:45] VITALS: BP 132/89
[2020-11-01 14:15] LABS: C DIFFICILE TOXIN A&B AMP PROB NEGATIVE (NEGATIVE)
== END | disposition home or self-care (01) ==
LOC: OR 10:02
PROVIDERS: ATTEND Internal Medicine Gastroenterology
DX: K29.70 Gastritis, unspecified, without bleeding (principal); D12.0 Benign neoplasm of cecum; D12.3 Benign neoplasm of transverse colon; D12.5 Benign neoplasm of sigmoid colon; K52.9 Noninfective gastroenteritis and colitis, unspecified; K21.9 Gastro-esophageal reflux disease without esophagitis; K20.90 Esophagitis, unspecified without bleeding; K44.9 Diaphragmatic hernia without obstruction or gangrene; K64.8 Other hemorrhoids; I25.10 Atherosclerotic heart disease of native coronary artery without angina pectoris; I10 Essential (primary) hypertension; M10.9 Gout, unspecified; Z88.6 Allergy status to analgesic agent; Z01.812 Encounter for preprocedural laboratory examination; Z20.822 Contact with and (suspected) exposure to COVID-19; Z79.02 Long term (current) use of antithrombotics/antiplatelets; Z95.5 Presence of coronary angioplasty implant and graft
CPT/HCPCS: 36415; 43239; 45380; 45385; 83630; 83993; 85025; 87045; 87177; 87328; 87493; C9113; J1980; J2250; J2704; J3010; U0002

== ENCOUNTER 2021-03-07 16:31 | Observation (INO) | payer OTHER ==
[~2021-03-07] VITALS: Ht 167.6 cm; Wt 77.1 kg
[~2021-03-07 16:31] MED LIST changes: -FENTANYL CITRATE/PF 100MCG/2 ML INJ ONE; -HYOSCYAMINE SULFATE 0.5 MG/ML INJ ONE; -MIDAZOLAM HCL 2 MG/2 ML VIAL ONE; -PANTOPRAZOLE 40 MG 10ML VIAL ONE; -PROPOFOL IV EMULSION 10 MG/ML 20 ML VIAL ONE
[2021-03-07 16:58] LABS: BASOPHILS % 0.6 % (0.0-1.0); EOSINOPHILS # (AUTO) 0.2 (0.0-0.4); EOSINOPHILS % 4.2 % (0.0-6.0); HEMATOCRIT 37.1 % (38.2-49.6); HEMOGLOBIN 12.5 g/dL (14.0-18.0); LYMPHOCYTES # (AUTO) 1.3 (1.0-3.2); LYMPHOCYTES % 25.2 % (18.0-39.1); MEAN CORPUSCULAR HEMOGLOBIN 31.4 pg (28-32); MEAN CORPUSCULAR HGB CONC 33.7 g/dL (31-35); MEAN CORPUSCULAR VOLUME 93.2 fL (81-99); MONOCYTES # (AUTO) 0.6 (0.2-0.8); MONOCYTES % 10.4 % (4.4-11.3); NEUTROPHILS # (AUTO) 3.1 (2.1-6.9); PLATELET COUNT 143 x10e3/uL (140-360); RED BLOOD COUNT 3.98 x10e6/uL (4.3-5.7); RED CELL DISTRIBUTION WIDTH 14.9 % (11.7-14.4)
[2021-03-07 17:08] LABS: PARTIAL THROMBOPLASTIN TIME 21.8 seconds (23.8-35.5)
[2021-03-07 17:12] LABS: INR 1.14; PROTHROMBIN TIME 14.8 seconds (11.9-14.5)
[2021-03-07 17:15] LABS: ALBUMIN 3.9 g/dL (3.5-5.0); ALBUMIN/GLOBULIN RATIO 1.1 (0.8-2.0); ANION GAP 16.9 mmol/L (8-16); CALCIUM 8.7 mg/dL (8.4-10.2); CREATININE, SERUM 0.83 mg/dL (0.72-1.25); POTASSIUM 3.9 mmol/L (3.5-5.1)
[2021-03-07 17:21] LABS: CREATINE KINASE MB 1.2 ng/mL (0-5.0)
[2021-03-07] MEDS ORDERED: ONDANSETRON HCL INJ 2MG/ML 2ML 2 MG/ML VIAL IV PRN (19:00)
[2021-03-07] MEDS ORDERED: MORPHINE SULFATE INJ 2 MG/ML SYR IV PRN (19:00)
[2021-03-08] VITALS: BP 146/77
[2021-03-08 02:09] VITALS: BP 146/77
[2021-03-08 03:22] LABS: CREATINE KINASE MB 0.8 ng/mL (0-5.0)
[2021-03-08 04:49] VITALS: BP 132/70
[2021-03-08 08:00] VITALS: BP 139/85
[2021-03-08 08:22] VITALS: BP 139/85
[2021-03-08] MEDS: ASPIRIN 81 MG ENTERIC COATED PO SCH (08:50)
[2021-03-08 09:00] LABS: CHOL/HDL RATIO 2.1 (3.9-4.7)
[2021-03-08] MEDS ORDERED: CLOPIDOGREL BISULFATE 75 MG TAB PO SCH (09:00)
[2021-03-08 09:30] LABS: CREATINE KINASE MB 0.8 ng/mL (0-5.0)
[2021-03-08 13:00] VITALS: BP 176/99
== END 2021-03-08 13:30 | disposition home or self-care (01) ==
LOC: ER 16:44 → ERHOLD 19:00 → MED/SURG 03-08 00:11
PROVIDERS: ADMIT Family Medicine; ATTEND Family Medicine
DX: R07.89 Other chest pain (principal); I25.10 Atherosclerotic heart disease of native coronary artery without angina pectoris; K21.9 Gastro-esophageal reflux disease without esophagitis; I10 Essential (primary) hypertension; Z95.5 Presence of coronary angioplasty implant and graft; Z88.5 Allergy status to narcotic agent; R74.01 Elevation of levels of liver transaminase levels; E78.5 Hyperlipidemia, unspecified; M10.9 Gout, unspecified; Z96.653 Presence of artificial knee joint, bilateral; Z87.442 Personal history of urinary calculi; Z82.49 Family history of ischemic heart disease and other diseases of the circulatory system; G43.909 Migraine, unspecified, not intractable, without status migrainosus
CPT/HCPCS: 36415 ×2; 71045; 80053; 80061; 82550 ×2; 82553 ×2; 84484 ×2; 85025; 85610; 85730; 99284; G0378 ×2; U0002

== ENCOUNTER → 2021-10-29 | Day surgery (SDC) | payer MEDICARE, BC ==
[2021-10-27 12:59] LABS: BASOPHILS % 0.3 % (0.0-1.0); EOSINOPHILS # (AUTO) 0.2 (0.0-0.4); EOSINOPHILS % 1.6 % (0.0-6.0); HEMATOCRIT 45.3 % (38.2-49.6); LYMPHOCYTES # (AUTO) 2.5 (1.0-3.2); LYMPHOCYTES % 23.1 % (18.0-39.1); MEAN CORPUSCULAR HEMOGLOBIN 31.4 pg (28-32); MEAN CORPUSCULAR HGB CONC 33.1 g/dL (31-35); MEAN CORPUSCULAR VOLUME 94.8 fL (81-99); MONOCYTES # (AUTO) 0.7 (0.2-0.8); MONOCYTES % 6.7 % (4.4-11.3); NEUTROPHILS # (AUTO) 7.3 (2.1-6.9); NEUTROPHILS % 67.2 % (38.7-80.0); PLATELET COUNT 220 x10e3/uL (140-360); RED BLOOD COUNT 4.78 x10e6/uL (4.3-5.7); RED CELL DISTRIBUTION WIDTH 13.9 % (11.7-14.4)
[2021-10-27 13:13] LABS: INR 0.85; PROTHROMBIN TIME 12.4 seconds (11.9-14.5)
[2021-10-27 13:14] LABS: PARTIAL THROMBOPLASTIN TIME 23.5 seconds (23.8-35.5)
[2021-10-27 13:20] LABS: ALBUMIN 3.7 g/dL (3.5-5.0); ANION GAP 13.2 mmol/L (8-16); CALCIUM 9.4 mg/dL (8.4-10.2); CREATININE, SERUM 1.03 mg/dL (0.72-1.25); POTASSIUM 4.2 mmol/L (3.5-5.1)
[~2021-10-29] MED LIST changes: +AZATHIOPRINE5 GM PO; +BUPIVACAINE HCL 0.25% 10ML MPF VIAL INJ ONE; +DEXAMETHASONE SOD PHOS INJ 4 MG/ML SDV ONE; +EPHEDRINE SULFATE INJ 50 MG/ML VIAL ONE; +FENTANYL CITRATE/PF 100MCG/2 ML INJ ONE; +GLYCOPYRROLATE INJ 0.2 MG/ML VIAL ONE; +KETOROLAC TROMETHAMINE 30 MG/ML VIAL ONE; +LIDOCAINE 1% W/EPINEPHRINE 20 ML VIAL ONE; +LIDOCAINE HCL 2% JELLY 5 ML TUBE ONE; +LIDOCAINE HCL 2% LOCAL INJ 5 ML SDV VIAL INJ ONE; +METOPROLOL TART25 MG PO; +MIDAZOLAM HCL 2 MG/2 ML VIAL ONE; +ONDANSETRON HCL INJ 2MG/ML 2ML 2 MG/ML VIAL ONE; +POVIDONE IODINE 0.05% 0.05 % ML PO ONE; +PREDNISONE20 MG PO; +PROPOFOL IV EMULSION 10 MG/ML 20 ML VIAL ONE; +SEVOFLURANE INHAL SOLN 250 ML PEN BTL ONE
[2021-10-29 14:06] VITALS: BP 151/97
== END | disposition home or self-care (01) ==
LOC: OR 10:21
PROVIDERS: ATTEND Surgery
DX: K64.5 Perianal venous thrombosis (principal); K64.8 Other hemorrhoids; I25.10 Atherosclerotic heart disease of native coronary artery without angina pectoris; I10 Essential (primary) hypertension; K74.60 Unspecified cirrhosis of liver; M19.90 Unspecified osteoarthritis, unspecified site; Z88.6 Allergy status to analgesic agent; Z01.810 Encounter for preprocedural cardiovascular examination; Z01.812 Encounter for preprocedural laboratory examination; Z01.818 Encounter for other preprocedural examination; Z20.822 Contact with and (suspected) exposure to COVID-19; Z79.02 Long term (current) use of antithrombotics/antiplatelets; Z79.899 Other long term (current) drug therapy; Z95.5 Presence of coronary angioplasty implant and graft
CPT/HCPCS: 36415; 46320; 71046; 80053; 85025; 85610; 85730; 93005; J1100; J1885; J2001 ×2; J2250; J2405; J2704; J3010; U0002

== ENCOUNTER 2021-11-09 19:44 | Emergency (ER) | payer MEDICARE, BC ==
[~2021-11-09] VITALS: Ht 167.6 cm; Wt 77.1 kg
[~2021-11-09 19:44] MED LIST changes: -BUPIVACAINE HCL 0.25% 10ML MPF VIAL INJ ONE; -DEXAMETHASONE SOD PHOS INJ 4 MG/ML SDV ONE; -EPHEDRINE SULFATE INJ 50 MG/ML VIAL ONE; -FENTANYL CITRATE/PF 100MCG/2 ML INJ ONE; -GLYCOPYRROLATE INJ 0.2 MG/ML VIAL ONE; -KETOROLAC TROMETHAMINE 30 MG/ML VIAL ONE; -LIDOCAINE 1% W/EPINEPHRINE 20 ML VIAL ONE; -LIDOCAINE HCL 2% JELLY 5 ML TUBE ONE; -LIDOCAINE HCL 2% LOCAL INJ 5 ML SDV VIAL INJ ONE; -MIDAZOLAM HCL 2 MG/2 ML VIAL ONE; -ONDANSETRON HCL INJ 2MG/ML 2ML 2 MG/ML VIAL ONE; -POVIDONE IODINE 0.05% 0.05 % ML PO ONE; -PROPOFOL IV EMULSION 10 MG/ML 20 ML VIAL ONE; -SEVOFLURANE INHAL SOLN 250 ML PEN BTL ONE
[2021-11-09] MEDS ORDERED: SODIUM CHLORIDE 0.9% 1000ML 1,000 ML IV STA (21:02)
[2021-11-09 21:13] LABS: BASOPHILS # (AUTO) 0.1 (0.0-0.1); BASOPHILS % 0.8 % (0.0-1.0); EOSINOPHILS # (AUTO) 0.4 (0.0-0.4); HEMATOCRIT 47.2 % (38.2-49.6); HEMOGLOBIN 15.8 g/dL (14.0-18.0); LYMPHOCYTES # (AUTO) 2.1 (1.0-3.2); LYMPHOCYTES % 26.8 % (18.0-39.1); MEAN CORPUSCULAR HEMOGLOBIN 31.4 pg (28-32); MEAN CORPUSCULAR HGB CONC 33.5 g/dL (31-35); MEAN CORPUSCULAR VOLUME 93.8 fL (81-99); MONOCYTES % 12.3 % (4.4-11.3); NEUTROPHILS # (AUTO) 4.1 (2.1-6.9); NEUTROPHILS % 52.9 % (38.7-80.0); PLATELET COUNT 298 x10e3/uL (140-360); RED BLOOD COUNT 5.03 x10e6/uL (4.3-5.7); RED CELL DISTRIBUTION WIDTH 14.4 % (11.7-14.4)
[2021-11-09 21:17] LABS: INR 0.82; PROTHROMBIN TIME 12.1 seconds (11.9-14.5)
[2021-11-09 21:26] LABS: ALBUMIN 4.2 g/dL (3.5-5.0); ALBUMIN/GLOBULIN RATIO 1.2 (0.8-2.0); ANION GAP 11.7 mmol/L (8-16); CALCIUM 9.6 mg/dL (8.4-10.2); CREATININE, SERUM 1.23 mg/dL (0.72-1.25); POTASSIUM 3.7 mmol/L (3.5-5.1)
[2021-11-09] MEDS ORDERED: IOPAMIDOL 370 MG/ML 100 ML INFUS..BTL INJ ONE (21:51)
[2021-11-09] MEDS ORDERED: SODIUM CHLORIDE 0.9% 100 ML ONE (21:51)
== END 2021-11-10 01:10 | disposition home or self-care (01) ==
LOC: ER 19:55
DX: K92.2 Gastrointestinal hemorrhage, unspecified (principal); I10 Essential (primary) hypertension; E03.9 Hypothyroidism, unspecified; B19.20 Unspecified viral hepatitis C without hepatic coma; I25.10 Atherosclerotic heart disease of native coronary artery without angina pectoris; K21.9 Gastro-esophageal reflux disease without esophagitis; Z87.442 Personal history of urinary calculi; Z95.5 Presence of coronary angioplasty implant and graft
CPT/HCPCS: 36415; 74174; 80053; 85025; 85610; 86850; 86900; 99284; J7030; J7050; Q9967

== ENCOUNTER → 2022-07-09 | Day surgery (SDC) | payer MEDICARE, BC ==
[2022-06-30 10:55] LABS: BASOPHILS % 0.3 % (0.0-1.0); EOSINOPHILS # (AUTO) 0.2 (0.0-0.4); EOSINOPHILS % 3.1 % (0.0-6.0); HEMATOCRIT 44.2 % (38.2-49.6); LYMPHOCYTES # (AUTO) 1.2 (1.0-3.2); LYMPHOCYTES % 20.1 % (18.0-39.1); MEAN CORPUSCULAR HEMOGLOBIN 32.6 pg (28-32); MEAN CORPUSCULAR HGB CONC 31.7 g/dL (31-35); MEAN CORPUSCULAR VOLUME 102.8 fL (81-99); MONOCYTES # (AUTO) 0.6 (0.2-0.8); MONOCYTES % 10.5 % (4.4-11.3); NEUTROPHILS # (AUTO) 3.8 (2.1-6.9); NEUTROPHILS % 64.6 % (38.7-80.0); PLATELET COUNT 289 x10e3/uL (140-360); RED CELL DISTRIBUTION WIDTH 14.3 % (11.7-14.4)
[2022-06-30 11:09] LABS: INR 0.9; PROTHROMBIN TIME 12.4 seconds (11.9-14.5)
[2022-06-30 11:10] LABS: PARTIAL THROMBOPLASTIN TIME 27.2 seconds (23.8-35.5)
[2022-06-30 11:16] LABS: ALBUMIN 4.2 g/dL (3.5-5.0); ALBUMIN/GLOBULIN RATIO 1.4 (0.8-2.0); ANION GAP 14.1 mmol/L (8-16); CALCIUM 9.7 mg/dL (8.4-10.2); CREATININE, SERUM 1.18 mg/dL (0.72-1.25); POTASSIUM 4.1 mmol/L (3.5-5.1)
[~2022-07-09] MED LIST changes: +ALBUTEROL SULFATE HFA 8GM INHALATION AEROSOL INH ONE; +HYOSCYAMINE SULFATE 0.5 MG/ML INJ ONE; +LIDOCAINE HCL 2% LOCAL INJ 5 ML SDV VIAL INJ ONE; +PROPOFOL IV EMULSION 10 MG/ML 20 ML VIAL ONE
[2022-07-09 11:48] VITALS: BP 139/85
== END | disposition home or self-care (01) ==
LOC: OR 08:46
PROVIDERS: ATTEND Internal Medicine Gastroenterology
DX: K62.89 Other specified diseases of anus and rectum (principal); D12.0 Benign neoplasm of cecum; D12.5 Benign neoplasm of sigmoid colon; K52.9 Noninfective gastroenteritis and colitis, unspecified; K57.30 Diverticulosis of large intestine without perforation or abscess without bleeding; K64.8 Other hemorrhoids; K21.9 Gastro-esophageal reflux disease without esophagitis; Z71.3 Dietary counseling and surveillance; I10 Essential (primary) hypertension; Z71.89 Other specified counseling; M10.9 Gout, unspecified; E03.9 Hypothyroidism, unspecified; I25.10 Atherosclerotic heart disease of native coronary artery without angina pectoris; Z88.6 Allergy status to analgesic agent; Z01.810 Encounter for preprocedural cardiovascular examination; Z01.812 Encounter for preprocedural laboratory examination; Z79.02 Long term (current) use of antithrombotics/antiplatelets; Z79.899 Other long term (current) drug therapy; Z79.52 Long term (current) use of systemic steroids; Z68.29 Body mass index [BMI] 29.0-29.9, adult; Z86.19 Personal history of other infectious and parasitic diseases; Z95.5 Presence of coronary angioplasty implant and graft
CPT/HCPCS: 36415; 45380; 80053; 85025; 85610; 85730; 88305; 88342; 93005; J1980; J2001; J2704; 45384

== ENCOUNTER 2024-05-29 15:14 | Emergency (ER) | payer MEDICARE, BC ==
[~2024-05-29] VITALS: Ht 167.6 cm; Wt 77.1 kg
[~2024-05-29 15:14] MED LIST changes: -ALBUTEROL SULFATE HFA 8GM INHALATION AEROSOL INH ONE; -HYOSCYAMINE SULFATE 0.5 MG/ML INJ ONE; -LIDOCAINE HCL 2% LOCAL INJ 5 ML SDV VIAL INJ ONE; -PROPOFOL IV EMULSION 10 MG/ML 20 ML VIAL ONE
[2024-05-29 16:29] LABS: BASOPHILS # (AUTO) 0.1 (0.0-0.1); BASOPHILS % 0.8 % (0.0-1.0); EOSINOPHILS # (AUTO) 0.7 (0.0-0.4); EOSINOPHILS % 7.8 % (0.0-6.0); HEMATOCRIT 49.3 % (38.2-49.6); HEMOGLOBIN 15.9 g/dL (14.0-18.0); LYMPHOCYTES # (AUTO) 1.6 (1.0-3.2); LYMPHOCYTES % 17.2 % (18.0-39.1); MEAN CORPUSCULAR HEMOGLOBIN 29.8 pg (28-32); MEAN CORPUSCULAR HGB CONC 32.3 g/dL (31-35); MEAN CORPUSCULAR VOLUME 92.3 fL (81-99); MONOCYTES % 10.7 % (4.4-11.3); NEUTROPHILS # (AUTO) 5.8 (2.1-6.9); NEUTROPHILS % 62.7 % (38.7-80.0); PLATELET COUNT 364 x10e3/uL (140-360); RED BLOOD COUNT 5.34 x10e6/uL (4.3-5.7); RED CELL DISTRIBUTION WIDTH 14.8 % (11.7-14.4); WHITE BLOOD COUNT 9.28 x10e3/uL (4.8-10.8)
[2024-05-29] MEDS: SODIUM CHLORIDE 0.9% 1000ML 1,000 ML IV STA (16:33)
[2024-05-29 16:36] LABS: INR 0.88; PROTHROMBIN TIME 12.5 seconds (11.9-14.5)
[2024-05-29 16:37] LABS: PARTIAL THROMBOPLASTIN TIME 31.5 seconds (23.8-35.5)
[2024-05-29 16:46] LABS: ALBUMIN 4.1 g/dL (3.5-5.0); ALBUMIN/GLOBULIN RATIO 0.9 (0.8-2.0); ANION GAP 17.3 mmol/L (8-16); BILIRUBIN,TOTAL 1.1 mg/dL (0.2-1.2); CALCIUM 10.7 mg/dL (8.4-10.2); CREATININE, SERUM 0.82 mg/dL (0.72-1.25); POTASSIUM 4.3 mmol/L (3.5-5.1); TOTAL PROTEIN 8.5 g/dL (6.5-8.1)
[2024-05-29 16:52] LABS: TROPONIN I 0.002 ng/mL (0-0.300)
[2024-05-29] MEDS ORDERED: IOPAMIDOL 370 MG/ML 100 ML INFUS..BTL INJ ONE (17:04)
[2024-05-29] MEDS ORDERED: SODIUM CHLORIDE 0.9% 100 ML ONE (17:04)
[2024-05-29 19:06] VITALS: PULSE 70; RESP 16; TEMP 98.5
[2024-05-29] MEDS ORDERED: AMOX TR-K CLV1 EAC2 PO (19:59)
[2024-05-29 20:35] VITALS: BP 126/94; PULSE 71; RESP 16; TEMP 99.1; O2SAT 99
== END 2024-05-29 20:36 | disposition home or self-care (01) ==
LOC: ER 15:43
DX: I73.9 Peripheral vascular disease, unspecified (principal); I10 Essential (primary) hypertension; E03.9 Hypothyroidism, unspecified; K76.9 Liver disease, unspecified; I25.10 Atherosclerotic heart disease of native coronary artery without angina pectoris; K21.9 Gastro-esophageal reflux disease without esophagitis; Z87.442 Personal history of urinary calculi
CPT/HCPCS: 36415; 71275; 75635; 80053; 82550; 83735; 84484; 85025; 85610; 85730; 93005; 93925; 99284; J7030; J7050; Q9967

== ENCOUNTER → 2024-06-26 | Outpatient (RCR) | payer MEDICARE, BC ==
[~2024-06-26] MED LIST changes: +AMOX TR-K CLV1 EAC2 PO
== END ==
LOC: PT 06-07 09:37 → OT 06-25 12:00 → PT 10:00 → OT 10:28
PROVIDERS: ATTEND Family Medicine
DX: G61.0 Guillain-Barre syndrome (principal)

== ENCOUNTER → 2024-07-27 | Outpatient (RCR) | payer MEDICARE, BC | LOC: OT 06-29 09:39 → PT 07-03 11:00 → OT 07-09 12:00 → PT 07-11 11:00 → OT 07-11 12:00 → PT 07-13 11:00 → OT 07-13 11:06 → PT 07-16 10:13 → OT 07-20 10:00 → PT 07-20 11:00 → OT 07-23 10:00 → PT 07-23 10:06 → OT 07-25 10:00 → PT 07-25 11:00 → OT 10:00 → PT 11:00 | PROVIDERS: ATTEND Family Medicine | DX: G61.0 Guillain-Barre syndrome (principal) ==

== ENCOUNTER 2024-07-30 09:22 | Outpatient (RCR) | payer MEDICARE, BC | END 2024-08-24 | LOC: PT 09:22 | PROVIDERS: ATTEND Family Medicine | DX: G61.0 Guillain-Barre syndrome (principal) ==

== ENCOUNTER → 2024-09-24 | Outpatient (RCR) | payer MEDICARE, BC | LOC: PT 09-07 09:28 → OT 09-07 09:29 → PT 09-10 08:00 → OT 09-14 08:45 → PT 09-17 10:26 → OT 09-19 10:00 → PT 09-19 10:24 → OT 09-21 10:00 → PT 09-21 10:37 → OT 10:19 | PROVIDERS: ATTEND Physical Medicine & Rehabilitation | DX: Z73.6 Limitation of activities due to disability (principal); Y93.B9 Activity, other involving muscle strengthening exercises ==

== ENCOUNTER → 2024-10-24 | Outpatient (RCR) | payer MEDICARE, BC | LOC: OT 09-26 06:45 → PT 09-28 10:00 → OT 09-28 11:00 → PT 10-01 15:00 → OT 10-01 16:00 → PT 10-03 09:56 → OT 10-08 10:00 → PT 10-08 11:00 → OT 10-10 10:00 → PT 10-10 10:35 → OT 10-12 10:56 → PT 10-15 09:47 → OT 10-17 10:00 → PT 10-17 10:12 → OT 10:00 → PT 11:00 | PROVIDERS: ATTEND Physical Medicine & Rehabilitation | DX: Z73.6 Limitation of activities due to disability (principal); Y93.B9 Activity, other involving muscle strengthening exercises ==

== ENCOUNTER 2024-12-12 10:00 | Outpatient (RCR) | payer MEDICARE, BC | END 2024-12-24 | LOC: OT 10:00 | PROVIDERS: ATTEND Physical Medicine & Rehabilitation | DX: Z73.6 Limitation of activities due to disability (principal); Y93.B9 Activity, other involving muscle strengthening exercises ==